=== PATIENT | female | born 1945 | race Caucasian/White ===

== ENCOUNTER 2017-07-10 11:41 | Inpatient (IN) | payer MEDICARE, BC, OTHER ==
[2017-07-10] MEDS ORDERED: Pyridostigmine TAB* 60 MG PO ONE (12:12)
[2017-07-10 12:35] LABS: ABS Basophils 0 10^3/ul (0-0.2); ABS Eosinophils 0 10^3/ul (0-0.6); ABS Lymphocytes 1.4 10^3/ul (1.0-4.8); ABS Monocytes 0.4 10^3/ul (0-0.8); ABS Neutrophils 3.5 10^3/ul (1.5-7.7); ABS Nucleated RBC 0 10^3/ul; Eosinophil % 0.6 % (0-6); Hematocrit 40 % (35-47); Hemoglobin 13.8 g/dl (12.0-16.0); Lymphocyte % 25.9 % (25-47); Mean Corpuscular HGB Conc 34 g/dl (31-36); Mean Corpuscular Hemoglobin 31 pg (27-31); Mean Corpuscular Volume 90 fL (80-97); Mean Platelet Volume 8.3 um3 (7.4-10.4); Nucleated Red Blood Cells % 0; Platelet Count 226 10^3/ul (150-450); Red Blood Count 4.48 10^6/ul (4.0-5.4); Red Cell Distribution Width 13 % (10.5-15); White Blood Count 5.4 10^3/ul (3.5-10.8)
[2017-07-10] MEDS ORDERED: Acetaminophen TAB* 325 MG PO PRN (14:03)
[2017-07-10] MEDS ORDERED: Al Hydrox/Mg Hydrox/Simet LIQ* 30 ML UDC PO PRN (14:03)
--- NOTE | 2017-07-10 17:52 | ED ---
Jeff Deleon Jennifer, scribed for Malick Bynum MD on 07/10/17 at 1216 . Neurological HPI - HPI Summary HPI Summary: The patient is a 71 year old female sent by Dr. Ricketts for myasthenia crisis today. The patient reports she missed her medication because shes been traveling. She complains of intermittent shortness of breath, intermittent palpitations, muscle fatigue, and trouble swallowing. The patient is able to ambulate using a cane. She adds that she recently moved to [place] from [place]. - History of Current Complaint Chief Complaint: EDNeurologicalDeficit Stated Complaint: SENT BY DR RICKETTS/INFUSION Time Seen by Provider: 07/10/17 11:49 Hx Obtained From: Patient Onset/Duration: Gradual Onset, Still Present, Worse Since - 6 weeks Timing: Constant Onset Severity: Moderate Current Severity: Moderate Pain Intensity: 0 Pain Scale Used: 0-10 Numeric Character: Other: - myasthenia, shortness of breath, palpitations, muscle fatigue, trouble swallowing Aggravating: Nothing Alleviating: Nothing Associated Signs and Symptoms: Positive: Shortness of Breath, Palpitations - Allergy/Home Medications Allergies/Adverse Reactions: Allergies Allergy/AdvReac Type Severity Reaction Status Date / Time oxycodone Allergy Hallucinati Verified 07/10/17 12:07 ons peanut Allergy See Comment Verified 07/10/17 12:07 codeine AdvReac Hallucinati Verified 07/10/17 12:07 ons Home Medications: Home Medications Aspirin EC TAB* [Ecotrin EC Low Dose 81 MG*] 81 mg PO DAILY 07/10/17 [History Confirmed 07/10/17] Cholestyramine Resin* [Questran*] 4 gm PO BID 07/10/17 [History Confirmed ] Metoprolol Succinate XL TAB* [Toprol XL TAB*] 50 mg PO BEDTIME 07/10/17 [ History Confirmed 07/10/17] Metoprolol Succinate XL TAB* [Toprol XL TAB*] 100 mg PO QAM 07/10/17 [History Confirmed 07/10/17] Multivitamins/Minerals TAB* [Theragran/minerals TAB*] 1 tab PO DAILY 07/10/17 [ History Confirmed 07/10/17] Pyridostigmine TAB* [Mestinon TAB*] 60 mg PO QID 07/10/17 [History Confirmed 05/25] Simvastatin [Zocor 5 MG-] 5 mg PO DAILY 07/10/17 [History Confirmed 07/10/17] PMH/Surg Hx/FS Hx/Imm Hx Endocrine/Hematology History: Denies: Hx Diabetes Cardiovascular History: Reports: Hx Hypercholesterolemia, Hx Hypertension Neurological History: Reports: Other Neuro Impairments/Disorders - Myasthemia gravis Infectious Disease History: No Infectious Disease History: Denies: Traveled Outside the [place] in Last 30 Days - Family History Known Family History: Negative: Renal Disease - Social History Alcohol Use: None Substance Use Type: Reports: None Smoking Status (MU): Never Smoked Tobacco Review of Systems ENT: Other - trouble swallowing Positive: Palpitations Positive: Shortness Of Breath Positive: Other - muscle fatigue All Other Systems Reviewed And Are Negative: Yes Physical Exam - Summary Physical Exam Summary: Appearance: Well appearing, no pain distress Skin: warm, dry, reflects adequate perfusion Head/face: normal Eyes: Ptosis most notably of left eye, able to lift left lid, EOMI, MICH ENT: normal Neck: supple, non-tender Respiratory: CTA, breath sounds present Cardiovascular: RRR, but episode of irregularity with what sounded like S3, pulses symmetrical Abdomen: non-tender, soft Bowel Sounds: present Musculoskeletal: normal, strength/ROM intact Neuro: normal, sensory motor intact, A&Ox3 Triage Information Reviewed: Yes Vital Signs On Initial Exam: Initial Vitals Temp Pulse Resp BP Pulse Ox 98.6 F 96 16 145/91 99 07/10/17 11:51 07/10/17 11:51 07/10/17 11:51 07/10/17 11:51 07/10/17 11:51 Vital Signs Reviewed: Yes Diagnostics - Vital Signs Vital Signs Temp Pulse Resp BP Pulse Ox 07/10/17 11:51 98.6 F 96 16 145/91 99 - Laboratory Lab Results: Lab Results 07/10/17 07/10/17 07/10/17 Range/Units 12:23 12:23 12:23 WBC 5.4 (3.5-10.8) 10^3/ul RBC 4.48 (4.0-5.4) 10^6/ul Hgb 13.8 (12.0-16.0) g/dl Hct 40 (35-47) % MCV 90 (80-97) fL MCH 31 (27-31) pg MCHC 34 (31-36) g/dl RDW 13 (10.5-15) % Plt Count 226 (150-450) 10^3/ul MPV 8.3 (7.4-10.4) um3 Neut % (Auto) 65.3 (38-83) % Lymph % (Auto) 25.9 (25-47) % [place] % (Auto) 7.9 H (0-7) % Eos % (Auto) 0.6 (0-6) % Baso % (Auto) 0.3 (0-2) % Absolute Neuts (auto) 3.5 (1.5-7.7) 10^3/ul Absolute Lymphs (auto) 1.4 (1.0-4.8) 10^3/ul Absolute Monos (auto) 0.4 (0-0.8) 10^3/ul Absolute Eos (auto) 0 (0-0.6) 10^3/ul Absolute Basos (auto) 0 (0-0.2) 10^3/ul Absolute Nucleated RBC 0 10^3/ul Nucleated RBC % 0 Sodium 138 L (139-145) mmol/L Potassium 3.7 (3.5-5.0) mmol/L Chloride 107 (101-111) mmol/L Carbon Dioxide 27 (22-32) mmol/L Anion Gap 4 (2-11) mmol/L BUN 10 (6-24) mg/dL Creatinine 0.64 (0.51-0.95) mg/dL Est GFR ( Amer) 117.0 (>60) Est GFR (Non-Af Amer) 91.0 (>60) BUN/Creatinine Ratio 15.6 (8-20) Glucose 102 H (70-100) mg/dL Calcium 10.1 (8.6-10.3) mg/dL Ionized Calcium 4.79 (4.65-5.28) mg/dL Phosphorus 3.1 (2.5-5.0) mg/dL Magnesium 1.9 (1.9-2.7) mg/dL Total Bilirubin 0.50 (0.2-1.0) mg/dL AST 29 (13-39) U/L ALT 32 (7-52) U/L Alkaline Phosphatase 69 (34-104) U/L Total Protein 7.8 (6.4-8.9) g/dL Albumin 3.9 (3.2-5.2) g/dL Globulin 3.9 (2-4) g/dL Albumin/Globulin Ratio 1.0 (1-3) Result Diagrams: 07/10/17 12:23 07/10/17 12:23 Lab Statement: Any lab studies that have been ordered have been reviewed, and results considered in the medical decision making process. - EKG 12:18 Cardiac Rate: NL EKG Rhythm: Sinus Rhythm - 93 BPM Ectopy: PVCs - Frequent EKG Interpretation: Normal axis, intervals, ST. Re-Evaluation - Re-Evaluation First Eval Re-Evaluation Time: 12:35 Change: Unchanged Comment: Forced vital capacity 1.5L. NIF of -25. Course/Dx - Course Course Of Treatment: Pt with ptosis of L eye that improved with ice pack test in office. No new meds. Came from neurologist's office. Will require admission for IVIG, etc. FVC is impaired. NIF -25. - Differential Dx Differential Diagnoses Neuro: Positive: Other - myasthenia crisis, med reaction. - Diagnoses Provider Diagnoses: Myasthenia gravis in crisis Discharge - Sign-Out/Discharge Documenting (check all that apply): Discharge/Admit/Transfer - Discharge Plan Condition: Good Disposition: ADMITTED TO [facility] - Billing Disposition and Condition Condition: GOOD Disposition: [facility] [place] The documentation as recorded by the Jeff gutierrez Jennifer accurately reflects the service I personally performed and the decisions made by me, Malick Bynum MD.
[2017-07-10] MEDS: Pyridostigmine TAB* 60 MG PO SCH ×2 (17:55→20:38)
[2017-07-10] MEDS: Cholestyramine Resin* 4 GM POWDER PO SCH ×2 (17:56→20:40)
[2017-07-10] MEDS: IMMUNE GLOBULN IV SCH (17:58)
--- NOTE | 2017-07-10 18:37 | CONS ---
CONSULTATION REPORT: DATE OF CONSULT: 07/10/17 REASON FOR CONSULT: Neurology was consulted by Dr. Medina to evaluate Ms. Figueroa for myasthenia exacerbation. The history was obtained from the patient. CHIEF COMPLAINT: Double vision and generalized weakness. HISTORY OF PRESENT ILLNESS: Ms. Maisha Figueroa is a pleasant 71-year-old right - handed female who was diagnosed with myasthenia gravis about 1-1/2 years ago. The diagnosis was made after she saw an gerontology aide for evaluation of intermitting double vision. Testing for acetylcholine receptor antibody was done and found positive. I do not have these records available at this time. The patient was referred to the hospital by Dr. Charli Ricketts for suspected myasthenia gravis exacerbation. Ms. Figueroa has been complaining of worsening double vision, slurred speech, and nocturnal shortness of breath over the last few days. The double vision is happening more than before and is described as diurnal horizontal diplopia that again occurs at nighttime. She is also experiencing dysarthria especially when she excessively communicates to her daughter. She also has noticed a left facial droop especially when chewing for longer than a few minutes. She has not had any choking spell. She is having trouble lifting her neck especially when doing any activity that involves neck flexion. She has tongue weakness. She denied any lateralized weakness. She denied any headaches. She denied any paresthesias. She has had IVIG in the past for similar symptoms and she has responded fairly well. She has not had any falls. She stopped driving due to the double vision. She is on Mestinon where she really takes only half of the 60 mg tablet 4 times a day. Mestinon has occasionally helped. PAST MEDICAL HISTORY: History of palpitation, arthritis, and cholesterol. Important to add that the patient is being treated with metoprolol for palpitation. PAST SURGICAL HISTORY: Cholecystectomy and hip replacement. MEDICATIONS: 1. Mestinon. 2. Toprol. 3. Questran. ALLERGIES: CODEINE and PEANUTS. FAMILY HISTORY: Father of old age. Mother had hypertension. Her brother had bypass surgery. SOCIAL HISTORY: She denied tobacco or alcohol use. She worked at [employer]. She is currently unemployed. REVIEW OF SYSTEMS: A 10-point review of systems was obtained, reviewed and otherwise negative except for what was mentioned in the HPI. PHYSICAL EXAMINATION: Vitals: Temperature of 98.6, pulse of 96, respirations 16, oxygen 99%, blood pressure of 145/91. General: Well nourished, well developed. Alert, cooperative, no apparent distress, appears stated age. Normocephalic without any obvious abnormality. Conjunctivae and cornea are clear. Neck: Supple, symmetrical. No carotid bruit. Lungs: Clear to auscultation bilaterally, nonlabored breathing. Cardiovascular: Regular rate and rhythm. Normal S1, S2. Radial pulses are palpable. Extremities: Normal range of motion with no cyanosis. Skin: No skin lesions or lacerations. Psych : Affect is broad and normal mood. Easy to establish rapport. Neurological Examination: Mental Status: Awake and alert, oriented to person, place, time, and general circumstances. She does have flaccid dysarthria especially after discussing the case with her for 20 minutes. She developed dysarthria. Otherwise, she was able to name, repeat, and comprehend fairly well. Cranial Nerves: Fatigable ptosis bilaterally, left worse than right. Curtain sign positive on the left. She does have a normal pupillary reaction, which are mid range and reactive to light with normal consensual response. Extraocular muscles are intact. Sensation is intact in the forehead, cheeks, and jaw region. There is a facial asymmetry, mostly a left facial droop. The patient has noticed this in the past as well. She is able to hear throughout the history process. Symmetrical palatal elevation with Mallampati score of IV. Shoulder shrug slightly weaker, left greater than right. Tongue exhibited weakness on both sides. Motor Examination: No abnormal movements and no pronator drift. Normal bulk and tone throughout. No fasciculation. Neck extension 4, neck flexion 4. Shoulder range of motion is full. She did become fatigued after shoulder elevation and shoulder abduction for more than 1 minute. Shoulder strength after exercise is 4/4. Otherwise, 5/5 throughout the upper extremity. Hip flexor is 4/4 after 1 minute of exercise. Otherwise, 5/5 throughout the lower extremities. Reflexes trace in the right and left brachioradialis, biceps, triceps, patellae , and ankles. She has flexor plantar response bilaterally. Sensation is intact to light touch throughout. Normal vibration and proprioception at the great toes. Coordination: Normal [id number] and rapid alternating movements. Gait and station: Mild wide-based gait, but no ataxia. LABS, IMAGING, AND OTHER DIAGNOSTIC TESTING: The patient did have MRIs of the brain when she used to see her old neurologist in [place]. Otherwise, no recent intracranial imaging. She has never had imaging of the chest to check for a thymoma. No images are available here during this hospitalization. Laboratory values: WBC of 5.4. Sodium of 138, glucose of 102. ASSESSMENT: This is a pleasant 71-year-old female with: 1. History of myasthenia gravis, presents with worsening symptoms of bulbar and motor weakness suggestive of myasthenia gravis crisis. The patient has intermittent shortness of breath mostly at night when lying flat, but it is mild at this point. We will admit for treatment of myasthenia gravis exacerbation. I don't think she is critical enough to require ICU monitoring but that may change quickly. We need to make sure she is monitored closely. 2. Palpitation - on metoprolol. Patients with myasthenia gravis should not be on a beta lyndsey. This has been held. RECOMMENDATIONS: Admit for treatment of myasthenia gravis exacerbation. I have started the patient on IVIG 400 mg/kg daily for the next 5 days. I also started her on prednisone 60 mg daily starting tomorrow after the second dose of IVIG. Please closely monitor the patient respiration as prednisone may exacerbate her neurological symptoms. I ordered pulmonary function tests and also negative inspiratory force pressure to be done every 6 hours for the next at least 24-48 hours. Please do not prescribe any fluoroquinolones, beta blockers, magnesium, macrolides, aminoglycosides, or calcium channel blockers that may exacerbate her myasthenia gravis. I started her on omeprazole and vitamin D supplementation. She will need CT of the chest or MRI of the chest to evaluate for thymoma since this has not been done. This can be done as an outpatient as she is currently receiving IVIG and IVIG may cause acute kidney injury. We do not want to exacerbate any kidney damage with iodine contrast. Continue neuro checks every 4 hours. Continue supportive care, aspiration precaution, and consulted Speech Pathology for evaluation. If she does not pass her speech evaluation, I would like her to undergo a modified barium swallow evaluation. I do not think that is going to be the case as the patient appears to swallow without any difficulty when tested at bedside. I have discussed the case with Dr. Ricketts as well as Dr. Medina. TIME SPENT: I spent a total of 70 minutes and greater than 50% was spent directly reviewing the medical chart, obtaining history, examining the patient, education, counseling, and discussing the treatment plan and prognosis. I also spent a period of 10 minutes discussing the case with other providers. [id number]/[facility] #: [id number] REBEKAH
[2017-07-10] MEDS: Heparin VIAL(*) 5000 UNITS/ML VIAL (FIVE THOUSAND) SUBCUT SCH (20:41)
--- NOTE | 2017-07-10 21:22 | HP ---
CC: Dr. Ricketts * HISTORY AND PHYSICAL: DATE OF ADMISSION: 07/10/17 PROVIDER: Olivia Chan NP PRIMARY CARE PROVIDER: None. ATTENDING PHYSICIAN: Dr. Jamie Medina * (dictated by Olivia Chan NP). CHIEF COMPLAINT: Double vision and neck weakness, slurred speech. HISTORY OF PRESENT ILLNESS: Ms. Figueroa is a 71-year-old female with a past medical history of palpitations, osteoarthritis, hyperlipidemia, hypertension, irritable bowel, and myasthenia gravis, who was seen by Dr. Ricketts and was thought to be in myasthenia gravis crisis. The patient reports that for approximately the last week she has had increased complaints of double vision, slurred speech left side of her mouth, difficulty swallowing, mild neck weakness and left eye drooping, increased fatigue. The patient states that her last flare of myasthenia gravis was in May where she did receive IVIG from to 05/31/17. She reports that she just moved to the area and she saw Dr. Ricketts for Neurology, who sent her here for further evaluation and treatment. PAST MEDICAL HISTORY: Significant for: 1. Palpitations. 2. Osteoarthritis. 3. Hyperlipidemia. 4. Hypertension. 5. Pancreatitis. The patient had 1 episode after having gallbladder removed. 6. Irritable bowel syndrome. 7. Myasthenia gravis. PAST SURGICAL HISTORY: 1. Cholecystectomy. 2. Bilateral hip replacements. HOME MEDICATIONS: Include, 1. Simvastatin 5 mg p.o. daily. 2. Multivitamin 1 tablet p.o. daily. 3. Aspirin 81 mg p.o. daily. 4. Metoprolol succinate 50 mg p.o. at bedtime. 5. Metoprolol succinate 100 mg p.o. q.a.m. 6. Mestinon 60 mg p.o. 4 times a day. 7. Questran 4 mg p.o. b.i.d. ALLERGIES TO MEDICATIONS: She is allergic to OXYCODONE, PEANUTS, and CODEINE. FAMILY HISTORY: Father with a history of angina. Brother with a history of bypass. Mother with a history of diabetes. No reported history of cancer within the family. SOCIAL HISTORY: She denies any tobacco or illicit drug use. She does report rare alcohol consumption. She is retired. Surrogate decision maker in the event she is unable to make her own decisions is her daughter, Milagros and her phone number is . REVIEW OF SYSTEMS: There is no documented fever. There is no significant weight change. She does report double vision. The patient does report she has left eye drooping. She denies any ear discharge. Denies any rhinorrhea or sore throat. She denies any chest pain or edema. Denies any cough or shortness of breath. Denies any nausea or vomiting. She does report diarrhea that is chronic for her. Denies any abdominal pain. No hematuria or dysuria. Denies any focal weakness or sensory loss. She does report mild dysphagia. She denies any arthralgias or myalgias. She does report a rash under bilateral breasts. She denies any anxiety but does report that she has been a little depressed lately. Review of 14 systems was completed and all others were negative. PHYSICAL EXAM: GENERAL: At this time, Ms. Figueroa is a 71-year-old female; she appears comfortable sitting on the stretcher in the emergency room. She does not appear to be in any acute distress. VITAL SIGNS: As follows, temperature was 98.6, heart rate was 91, respirations were 14, blood pressure 131/83, O2 saturation was 96%. HEENT: Head is atraumatic and normocephalic. Eyes: She has left eye drooping. Pupils are equal and reactive to light. Oral mucosa appears to be moist. NECK: Supple with mild weakness. LUNGS: Clear to auscultation bilaterally. No wheezes, rales, or rhonchi. CARDIAC: S1, S2. Regular rate and rhythm. There is no murmurs, rubs, or gallops. ABDOMEN: Soft and nontender. Bowel sounds are present x4. EXTREMITIES: Pulses are +2 throughout. She is able to move all 4 extremities with 5/5 strength. NEUROLOGIC: She is awake, alert, and oriented x3. She does have a left facial droop. Her smile is asymmetrical. Her tongue does deviate to the left. Her left eye is drooping. Her speech is clear. Hand performing arts road manager are equal. SKIN: She does have a red rash in her bilateral breasts. DIAGNOSTIC STUDIES AND LABORATORY DATA: WBCs were 5.4, RBCs 4.48, hemoglobin 13.8, hematocrit was 40, platelet count was 226. Sodium 138, potassium 3.7, chloride 107, carbon-dioxide was 7, anion gap was 4, BUN was 10, creatinine 0.64 , glucose was 102, calcium was 10.1, phosphorus was 3.1, magnesium was 1.9. TSH 0.95. Vitamin B12 was 312. She had an electrocardiogram done in the emergency room, which showed sinus rhythm at a rate of 93 with PVCs. ASSESSMENT AND PLAN: Ms. Figueroa is a 71-year-old female who presented to the emergency room from Dr. Ricketts's office for evaluation of myasthenia gravis crisis. She has had crisis in the past with last treatment for myasthenia gravis crisis on 05/26/17, where she did receive IVIG. She will be admitted inpatient for: 1. Myasthenia gravis crisis. I did consult Dr. Anaya from Neurology for recommendations. She will be placed on IVIG. We will do neuro checks q.4 hours. We will continue her on her Mestinon at 60 mg 4 times a day. 2. Hypertension. We will monitor her blood pressure at this time. Dr. Anaya would like metoprolol held at this time. 3. Hyperlipidemia. We will continue her on her Zocor. 4. Irritable bowel syndrome. We will continue her on Questran 4 mg b.i.d. 5. FEN. She will be placed on a heart-healthy diet. 6. Code status. She is a full code. 7. DVT prophylaxis. We will place her on heparin subcutaneous. 8. Disposition. She will be placed inpatient on the telemetry floor. TIME SPENT: Time spent on this admission was 60 minutes, greater than half the time was spent [id number] with the patient obtaining my history and physical; the other half the time was spent going over the plan of care with the patient and implementing my plan of care. I have discussed this with my attending, Dr. Jamie Medina, he is in agreement with my plan. OLIVIA CHAN, VISUAL LEAD [id number]/[facility] #: [id number] REBEKAH
[2017-07-11] MEDS: Heparin VIAL(*) 5000 UNITS/ML VIAL (FIVE THOUSAND) SUBCUT SCH ×3 (05:58→21:40)
[2017-07-11 07:00] LABS: ABS Basophils 0 10^3/ul (0-0.2); ABS Eosinophils 0.1 10^3/ul (0-0.6); ABS Lymphocytes 1.4 10^3/ul (1.0-4.8); ABS Monocytes 0.4 10^3/ul (0-0.8); ABS Nucleated RBC 0 10^3/ul; Eosinophil % 1.6 % (0-6); Hematocrit 37 % (35-47); Hemoglobin 12.9 g/dl (12.0-16.0); Lymphocyte % 36.4 % (25-47); Mean Corpuscular HGB Conc 35 g/dl (31-36); Mean Corpuscular Hemoglobin 31 pg (27-31); Mean Corpuscular Volume 89 fL (80-97); Mean Platelet Volume 8.5 um3 (7.4-10.4); Nucleated Red Blood Cells % 0.1; Platelet Count 200 10^3/ul (150-450); Red Blood Count 4.16 10^6/ul (4.0-5.4); Red Cell Distribution Width 13 % (10.5-15)
[2017-07-11 07:18] LABS: EGFR Non-African American 87.8 (>60)
[2017-07-11] MEDS: Cholestyramine Resin* 4 GM POWDER PO SCH ×2 (07:59→21:38)
[2017-07-11] MEDS: Pyridostigmine TAB* 60 MG PO SCH ×4 (07:59→21:36)
[2017-07-11] MEDS: Multivitamins/Minerals TAB PO SCH (07:59)
[2017-07-11] MEDS: Cholecalciferol TAB* 1000 UNITS PO SCH (07:59)
[2017-07-11] MEDS: Aspirin EC TAB* 81 MG TAB.EC PO SCH (07:59)
[2017-07-11] MEDS: Omeprazole CAP(NF) 10 MG CAP PO SCH (07:59)
[2017-07-11] MEDS: CMCS Simvastatin TAB(NF) 10 MG TAB PO SCH (07:59)
[2017-07-11] MEDS ORDERED: predniSONE TAB* 20 MG PO SCH (09:00)
--- NOTE | 2017-07-11 12:24 | PN ---
Subjective Date of Service: 07/11/17 Interval History: C/o some difficulty swallowing today. Did have an episode where she choked on one of her morning medications. Denies any chest pain or shortness of breath at this time. Denies abd pain n/v/d. Family History: Unchanged from Admission Social History: Unchanged from Admission Past Medical History: Unchanged from Admission Objective Active Medications: Acetaminophen (Tylenol Tab*) 650 mg PO Q4H PRN PRN Reason: FEVER/PAIN Aspirin (Aspirin Ec Tab*) 81 mg PO DAILY [facility] Last Admin: 07/11/17 07:59 Dose: 81 mg Cholecalciferol (Vitamin D Tab*) 2,000 units PO DAILY [facility] Last Admin: 07/11/17 07:59 Dose: 2,000 units Cholestyramine Resin (Questran*) 4 gm PO BID [facility] Last Admin: 07/11/17 07:59 Dose: 4 gm Heparin Sodium (Porcine) (Heparin Vial(*)) 5,000 units SUBCUT Q8HR [facility] Last Admin: 07/11/17 05:58 Dose: 5,000 units Immune Globulin 30 gm/ IV (Solution) 600 mls @ 0 mls/hr IV 1200 [facility]; Per Protocol PRN Reason: Protocol Stop: 07/14/17 12:01 Last Admin: 07/10/17 17:58 Dose: 46 mls/hr Multivitamins/Minerals (Theragran/Minerals Tab*) 1 tab PO DAILY [facility] Last Admin: 07/11/17 07:59 Dose: 1 tab Omeprazole (Prilosec Cap(Nf)) 10 mg PO DAILY [facility] Last Admin: 07/11/17 07:59 Dose: Not Given Prednisone (Deltasone Tab*) 20 mg PO DAILY [facility] Pyridostigmine [place] (Mestinon Tab*) 60 mg PO 0530,1030,1530,2030 [facility] Simvastatin (Zocor(Nf)) 5 mg PO DAILY [facility] Last Admin: 07/11/17 07:59 Dose: 5 mg Vital Signs - 8 hr 07/11/17 04:28 Temperature 98.7 F Pulse Rate 95 Respiratory 18 Rate Blood Pressure 122/67 (mmHg) O2 Sat by Pulse 98 Oximetry Oxygen Devices in Use Now: None Appearance: pleasent, awake and alert, no acute distress, left facial droop noted. Eyes: No Scleral Icterus Ears/Nose/Mouth/Throat: Clear Oropharnyx, Mucous Membranes Moist Neck: NL Appearance and Movements; NL JVP, Trachea Midline Respiratory: Symmetrical Chest Expansion and Respiratory Effort, Clear to Auscultation Cardiovascular: NL Sounds; No Murmurs; No JVD, No Edema Abdominal: NL Sounds; No Tenderness; No Distention Extremities: No Edema, No Clubbing, Cyanosis Skin: No Rash or Ulcers, No Nodules or Sclerosis Neurological: Alert and Oriented x 3, NL Sensation, NL Gait, NL Muscle Strength and Tone, - - left facial droop and left eye ptosis, tongue deviates to the left , speech is slightly slurred Nutrition: Taking PO's Result Diagrams: 07/11/17 06:40 07/11/17 06:39 Additional Lab and Data: Lab Results 07/10/17 07/10/17 07/10/17 Range/Units 12:23 12:23 12:23 WBC 5.4 (3.5-10.8) 10^3/ul RBC 4.48 (4.0-5.4) 10^6/ul Hgb 13.8 (12.0-16.0) g/dl Hct 40 (35-47) % MCV 90 (80-97) fL MCH 31 (27-31) pg MCHC 34 (31-36) g/dl RDW 13 (10.5-15) % Plt Count 226 (150-450) 10^3/ul MPV 8.3 (7.4-10.4) um3 Neut % (Auto) 65.3 (38-83) % Lymph % (Auto) 25.9 (25-47) % [place] % (Auto) 7.9 H (0-7) % Eos % (Auto) 0.6 (0-6) % Baso % (Auto) 0.3 (0-2) % Absolute Neuts (auto) 3.5 (1.5-7.7) 10^3/ul Absolute Lymphs (auto) 1.4 (1.0-4.8) 10^3/ul Absolute Monos (auto) 0.4 (0-0.8) 10^3/ul Absolute Eos (auto) 0 (0-0.6) 10^3/ul Absolute Basos (auto) 0 (0-0.2) 10^3/ul Absolute Nucleated RBC 0 10^3/ul Nucleated RBC % 0 Sodium 138 L (139-145) mmol/L Potassium 3.7 (3.5-5.0) mmol/L Chloride 107 (101-111) mmol/L Carbon Dioxide 27 (22-32) mmol/L Anion Gap 4 (2-11) mmol/L BUN 10 (6-24) mg/dL Creatinine 0.64 (0.51-0.95) mg/dL Est GFR ( Amer) 117.0 (>60) Est GFR (Non-Af Amer) 91.0 (>60) BUN/Creatinine Ratio 15.6 (8-20) Glucose 102 H (70-100) mg/dL Calcium 10.1 (8.6-10.3) mg/dL Ionized Calcium 4.79 (4.65-5.28) mg/dL Phosphorus 3.1 (2.5-5.0) mg/dL Magnesium 1.9 (1.9-2.7) mg/dL Total Bilirubin 0.50 (0.2-1.0) mg/dL AST 29 (13-39) U/L ALT 32 (7-52) U/L Alkaline Phosphatase 69 (34-104) U/L Total Protein 7.8 (6.4-8.9) g/dL Albumin 3.9 (3.2-5.2) g/dL Globulin 3.9 (2-4) g/dL Albumin/Globulin Ratio 1.0 (1-3) Assess/Plan/Problems-Billing Assessment: Ms. Figueroa is a 71 y.o female with a hx of HTN, HLD, palpitations, IBS and osteoarthritis who presented to the Emergency room after being seen by Dr. King whitfield on 07/09/2017 for furthur management of myasthenia gravis. - Patient Problems (1) Myasthenia exacerbation Current Visit: Yes Status: Acute Code(s): G70.01 - MYASTHENIA GRAVIS WITH ( ACUTE) EXACERBATION SNOMED Code(s): 13471069 Comment: - continues to have some slurred speech , episode of choking on medications this AM- recommend crushing medications for now - speech threapy - Neurology consulted- suggested barium swallow for friday - IVIG as ordered - steriods - continue mestinon QID (2) HLD (hyperlipidemia) Current Visit: Yes Status: Acute Code(s): E78.5 - HYPERLIPIDEMIA, UNSPECIFIED SNOMED Code(s): 11617501 Comment: stable - continue zocor (3) HTN (hypertension) Current Visit: Yes Status: Acute Code(s): I10 - ESSENTIAL (PRIMARY) HYPERTENSION SNOMED Code(s): 80666463 Comment: -stable -Metoprolol was help d/t this medications may excerbate myasthenia symptoms -will monitor BP if BP becomes elevated will start medication as needed (4) Palpitation Current Visit: Yes Status: Acute Code(s): R00.2 - PALPITATIONS SNOMED Code (s): 29847375 Comment: - has a history of Non-sustained VT and PVC's - metprolol was being held d/t myasthenia excerbation but patient has developed frequent PVC's and bigeminy- spoke to Dr. Blayne rubalcava to restart beta blockers (5) DVT prophylaxis Current Visit: Yes Status: Acute Code(s): XLS9555 - SNOMED Code(s): 396684003 Comment: Heparin SubQ (6) Full code status Current Visit: Yes Status: Acute Code(s): Z78.9 - OTHER SPECIFIED HEALTH STATUS SNOMED Code(s): 588467859 Status and Disposition: inpatient for IVIG
[2017-07-11] MEDS: Metoprolol Succinate XL TAB* 100 MG PO SCH (13:29)
[2017-07-11] MEDS: IMMUNE GLOBULN IV SCH (13:29)
[2017-07-11] MEDS: Metoprolol Succinate XL TAB* 50 MG PO SCH (21:36)
[2017-07-12] MEDS: Heparin VIAL(*) 5000 UNITS/ML VIAL (FIVE THOUSAND) SUBCUT SCH ×3 (05:27→21:21)
[2017-07-12] MEDS: Pyridostigmine TAB* 60 MG PO SCH ×4 (05:27→21:23)
--- NOTE | 2017-07-12 06:42 | PN ---
NEUROLOGY PROGRESS NOTE: DATE OF SERVICE: 07/11/17 Neurology is following for the evaluation and treatment of myasthenia gravis exacerbation. CHIEF COMPLAINT: Worsening of swallowing function. SUBJECTIVE: The patient noticed that her swallowing has worsened over the last few hours after takin g prednisone. She feels more fatigued. She does not feel too well. She has double vision. She thi nks her ptosis has worsened on the left side. Otherwise, she was able to tolerate IVIG yesterday and is waiting to have the second infusion today. She denied any significant shortness of breath. REVIEW OF SYSTEMS: As per HPI. MEDICATIONS: 1. Acetaminophen. 2. Aspirin. 3. Cholestyramine. 4. IVIG. 5. Prednisone. 6. Mestinon. 7. Simvastatin. PHYSICAL EXAMINATION: Vital Signs: Heart rate 88, blood pressure 110/68, oxygen saturation 97%, res piratory rate of 16. The patient had forced vital capacity of 1.4 L. Negative inspiratory pressure of -35. Well-nourished, well-developed female, in no acute distress. Normocephalic without obvious abnormalities. Conjunctivae and cornea are clear. Neck is supple with no carotid bruits. Clear to a uscultation bilaterally. Cardiovascular: She is tachycardic. She has been tachycardic over the las t few hours. Extremities: Normal range of motion. Neurological Examination: Mental Status: Awake and alert, oriented to person, place, time, and general circumstances. She does have mild dysarthria . Cranial Nerves: Left worse than right ptosis. Pupils are equal, round and reactive to light. Le ft facial droop. Mild tongue weakness on bilateral side. Motor: Mild 4/5 weakness on shoulder abdu ction, but otherwise 5/5 throughout in the upper extremity. She has 4/5 hip flexion weakness bilater ally. Reflexes trace throughout. Sensation intact to light touch throughout. Coordination: Normal [id number]. Gait and station, narrow based. No ataxia. ASSESSMENT: 1. Myasthenia gravis exacerbation. 2. Tachycardia. 3. Dysphagia. RECOMMENDATIONS: The patient's NIF and forced vital capacity are within normal limits. Please manjula nue to do both respiratory measures at least 12 hours for now. I agree with reducing the dose of pred nisone to 20 mg daily. She clearly has had worsening of symptoms with 60 mg dose. We will slowly in crease the dose as outpatient. Continue IVIG. Today is 2/5 of treatment with IVIG. If her NIF fall below 25, please contact the neurologist immediately. I agree with restarting the metoprolol for the tachycardia. The patient does have history of bigemin i and supraventricular tachycardia and she is extremely tachycardic at this point. I do not think th e metoprolol is worsening or causing any exacerbation of her myasthenia. I discussed the case in det ail with Olivia, the patient's provider. She will order a modified barium swallow, which can be don e by Friday. Continue neuro checks every 4 hours. We will continue to follow. [id number]/[facility] #: [id number]
[2017-07-12] MEDS: CMCS Simvastatin TAB(NF) 10 MG TAB PO SCH (08:16)
[2017-07-12] MEDS: Cholestyramine Resin* 4 GM POWDER PO SCH ×2 (08:16→21:21)
[2017-07-12] MEDS: Cholecalciferol TAB* 1000 UNITS PO SCH (08:17)
[2017-07-12] MEDS: Aspirin EC TAB* 81 MG TAB.EC PO SCH (08:17)
[2017-07-12] MEDS: predniSONE TAB* 20 MG PO SCH (08:17)
[2017-07-12] MEDS: Metoprolol Succinate XL TAB* 100 MG PO SCH (08:17)
[2017-07-12] MEDS: Multivitamins/Minerals TAB PO SCH (08:17)
[2017-07-12] MEDS: Omeprazole CAP(NF) 10 MG CAP PO SCH (08:26)
--- NOTE | 2017-07-12 09:03 | PN ---
Subjective Date of Service: 07/12/17 Interval History: Patient was seen and examined at bedside. Reports doing better today. Speech still slurred, but no more episodes of chocking or swallowing difficulties. Denies chest pain, palpitations, dyspnea or SOB. Ambulatory in her room, using the bathroom. She has no complaints today. Family History: Unchanged from Admission Social History: Unchanged from Admission Past Medical History: Unchanged from Admission Objective Active Medications: Acetaminophen (Tylenol Tab*) 650 mg PO Q4H PRN PRN Reason: FEVER/PAIN Aspirin (Aspirin Ec Tab*) 81 mg PO DAILY [facility] Last Admin: 07/12/17 08:17 Dose: 81 mg Cholecalciferol (Vitamin D Tab*) 2,000 units PO DAILY [facility] Last Admin: 07/12/17 08:17 Dose: 2,000 units Cholestyramine Resin (Questran*) 4 gm PO BID [facility] Last Admin: 07/12/17 08:16 Dose: 4 gm Heparin Sodium (Porcine) (Heparin Vial(*)) 5,000 units SUBCUT Q8HR [facility] Last Admin: 07/12/17 05:27 Dose: 5,000 units Immune Globulin 30 gm/ IV (Solution) 600 mls @ 0 mls/hr IV 1200 [facility]; Per Protocol PRN Reason: Protocol Stop: 07/14/17 12:01 Last Admin: 07/11/17 13:29 Dose: 46 mls/hr Metoprolol Succinate (Toprol Xl Tab*) 100 mg PO QAM [facility] Last Admin: 07/12/17 08:17 Dose: 100 mg Metoprolol Succinate (Toprol Xl Tab*) 50 mg PO BEDTIME [facility] Last Admin: 07/11/17 21:36 Dose: 50 mg Multivitamins/Minerals (Theragran/Minerals Tab*) 1 tab PO DAILY [facility] Last Admin: 07/12/17 08:17 Dose: 1 tab Omeprazole (Prilosec Cap(Nf)) 10 mg PO DAILY [facility] Last Admin: 07/12/17 08:26 Dose: Not Given Prednisone (Deltasone Tab*) 20 mg PO DAILY [facility] Last Admin: 07/12/17 08:17 Dose: 20 mg Pyridostigmine [place] (Mestinon Tab*) 60 mg PO 0530,1030,1530,2030 [facility] Last Admin: 07/12/17 05:27 Dose: 60 mg Simvastatin (Zocor(Nf)) 5 mg PO DAILY [facility] Last Admin: 07/12/17 08:16 Dose: 5 mg Vital Signs - 8 hr 07/12/17 07/12/17 03:29 08:05 Temperature 98.3 F 97.9 F Pulse Rate 114 Respiratory 18 Rate Blood Pressure 141/75 (mmHg) O2 Sat by Pulse 99 Oximetry Oxygen Devices in Use Now: None Appearance: Awake, alert, appears comfortable sitting on her bed, just finished eating breakfast. Eyes: No Scleral Icterus, PERRLA Ears/Nose/Mouth/Throat: Clear Oropharnyx, Mucous Membranes Moist Neck: Trachea Midline Respiratory: Symmetrical Chest Expansion and Respiratory Effort, Clear to Auscultation Cardiovascular: NL Sounds; No Murmurs; No JVD, RRR Abdominal: NL Sounds; No Tenderness; No Distention, No Hepatosplenomegaly Lymphatic: No Cervical Adenopathy Extremities: No Edema Neurological: Alert and Oriented x 3, NL Sensation Nutrition: Taking PO's Result Diagrams: 07/11/17 06:40 07/11/17 06:39 Additional Lab and Data: Lab Results 07/10/17 07/10/17 07/10/17 Range/Units 12:23 12:23 12:23 WBC 5.4 (3.5-10.8) 10^3/ul RBC 4.48 (4.0-5.4) 10^6/ul Hgb 13.8 (12.0-16.0) g/dl Hct 40 (35-47) % MCV 90 (80-97) fL MCH 31 (27-31) pg MCHC 34 (31-36) g/dl RDW 13 (10.5-15) % Plt Count 226 (150-450) 10^3/ul MPV 8.3 (7.4-10.4) um3 Neut % (Auto) 65.3 (38-83) % Lymph % (Auto) 25.9 (25-47) % [place] % (Auto) 7.9 H (0-7) % Eos % (Auto) 0.6 (0-6) % Baso % (Auto) 0.3 (0-2) % Absolute Neuts (auto) 3.5 (1.5-7.7) 10^3/ul Absolute Lymphs (auto) 1.4 (1.0-4.8) 10^3/ul Absolute Monos (auto) 0.4 (0-0.8) 10^3/ul Absolute Eos (auto) 0 (0-0.6) 10^3/ul Absolute Basos (auto) 0 (0-0.2) 10^3/ul Absolute Nucleated RBC 0 10^3/ul Nucleated RBC % 0 Sodium 138 L (139-145) mmol/L Potassium 3.7 (3.5-5.0) mmol/L Chloride 107 (101-111) mmol/L Carbon Dioxide 27 (22-32) mmol/L Anion Gap 4 (2-11) mmol/L BUN 10 (6-24) mg/dL Creatinine 0.64 (0.51-0.95) mg/dL Est GFR ( Amer) 117.0 (>60) Est GFR (Non-Af Amer) 91.0 (>60) BUN/Creatinine Ratio 15.6 (8-20) Glucose 102 H (70-100) mg/dL Calcium 10.1 (8.6-10.3) mg/dL Ionized Calcium 4.79 (4.65-5.28) mg/dL Phosphorus 3.1 (2.5-5.0) mg/dL Magnesium 1.9 (1.9-2.7) mg/dL Total Bilirubin 0.50 (0.2-1.0) mg/dL AST 29 (13-39) U/L ALT 32 (7-52) U/L Alkaline Phosphatase 69 (34-104) U/L Total Protein 7.8 (6.4-8.9) g/dL Albumin 3.9 (3.2-5.2) g/dL Globulin 3.9 (2-4) g/dL Albumin/Globulin Ratio 1.0 (1-3) Assess/Plan/Problems-Billing Assessment: Ms. Figueroa is a 71 y.o female with a hx of HTN, HLD, palpitations, IBS and osteoarthritis who presented to the Emergency room after being seen by Dr. King whitfield on 07/09/2017 for furthur management of myasthenia gravis. - Patient Problems (1) Myasthenia exacerbation Current Visit: Yes Status: Acute Comment: - continues to have some slurred speech , no more episodes of choking on medications since yesterday, will continue crushing medications for now - speech threapy - Neurology consulted- suggested barium swallow for friday - IVIG as ordered - steriods - continue mestinon QID (2) HLD (hyperlipidemia) Current Visit: Yes Status: Acute Comment: stable - continue zocor (3) HTN (hypertension) Current Visit: Yes Status: Acute Comment: -stable (4) Palpitation Current Visit: Yes Status: Acute Code(s): R00.2 - PALPITATIONS SNOMED Code (s): 80287313 Comment: - has a history of Non-sustained VT and PVC's - metprolol was resumed (5) DVT prophylaxis Current Visit: Yes Status: Acute Comment: Heparin SubQ (6) Full code status Current Visit: Yes Status: Acute Status and Disposition: Inpatient for IVIG. Anticipate discharge once medically stable.
[2017-07-12] MEDS: IMMUNE GLOBULN IV SCH (13:08)
--- NOTE | 2017-07-12 18:39 | PN ---
NEUROLOGY FOLLOWUP: DATE OF FOLLOWUP: 07/12/17 LOCATION: She is an inpatient in room 452. HOSPITALIST: AGUSTIN Prajapati CHIEF COMPLAINT: Myasthenia gravis. INTERVAL HISTORY: Since yesterday, Ms. Figueroa feels better. She felt worse yesterday being general ly more weak with more swallowing problems in particular. She had difficulty swallowing some of her p ills. Today, she feels she is doing considerably better. She has not had any shortness of breath. She feels steady on her feet. She still gets double vision, but she has moments where things will be fused. She is able to keep her left eye open better. MEDICATIONS: Reviewed and she is on: 1. Prednisone 20 mg p.o. daily. 2. Metoprolol 50 mg p.o. q.h.s. and 100 mg p.o. q.a.m. 3. Multivitamins. 4. IVIG 30 g IV daily for 5 days. 5. Heparin 5000 units subcu q.8 hours. 6. Vitamin D 2000 units p.o. daily. 7. Aspirin 81 mg p.o. daily. 8. Cholestyramine 4 g p.o. b.i.d. PHYSICAL EXAMINATION: She is well nourished and well hydrated. Temperature 98.1, blood pressure 130 /70, heart rate in the 80s and regular. Respiratory rate is 18 and oxygen saturation is 99% on room air. Lungs are clear bilaterally. Heart is in a regular rhythm without murmurs. Oral mucosa is jessenia st. Neurological Exam: She has ptosis of the left eye, which is fatigable. She has mild left facial wea kness in terms of both eye closure and lower facial strength, but it looks better than yesterday. Sp eech is dysarthric. Tongue protrudes in the midline and palate rises symmetrically. She has good st rength proximally and distally in the upper and lower extremities. She is alert and oriented to pers on, place, and time. Remote and recent memory are intact. There is no tremor in the limbs. DIAGNOSTIC STUDIES/LAB DATA: Laboratory data is from yesterday and reveals unremarkable chemistry pr ofile and CBC. Her forced vital capacity was 2.4 today when given assistance with forming a seal with her mouth. He r negative inspiratory force was -42 cm of water. 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 She i s on her third day of intravenous immunoglobulin today. Her prednisone was decreased from 60 mg to 2 0 mg per day and I would recommend leaving it at that dose for now and might be increased a little bi t at discharge. Dr. Ricketts will be following up for our service tomorrow. I answered questions for Ms Jocelyn Figueroa and her daughter. I told them she may need to see a dietitian and talk about a diabetes ty pe diet if she is going to be on prednisone for very long. I will leave it up to Dr. Ricketts, who is he r regular neurologist. I have spoken to Kathya Dariusz about reinstituting metoprolol because she gets t achycardic when she is not on a beta-lyndsey. I think it is reasonable to do so as long as we are ag gressively treating her myasthenia as this is currently the case. [id number]/[facility] #: [id number]
[2017-07-12] MEDS: Metoprolol Succinate XL TAB* 50 MG PO SCH (21:21)
[2017-07-13] MEDS: Pyridostigmine TAB* 60 MG PO SCH ×4 (05:18→20:34)
[2017-07-13] MEDS: Heparin VIAL(*) 5000 UNITS/ML VIAL (FIVE THOUSAND) SUBCUT SCH ×3 (05:19→21:05)
[2017-07-13] MEDS: Omeprazole CAP(NF) 10 MG CAP PO SCH (08:05)
[2017-07-13] MEDS: predniSONE TAB* 20 MG PO SCH (08:05)
[2017-07-13] MEDS: CMCS Simvastatin TAB(NF) 10 MG TAB PO SCH (08:06)
[2017-07-13] MEDS: Metoprolol Succinate XL TAB* 100 MG PO SCH (08:06)
[2017-07-13] MEDS: Cholecalciferol TAB* 1000 UNITS PO SCH (08:06)
[2017-07-13] MEDS: Aspirin EC TAB* 81 MG TAB.EC PO SCH (08:06)
[2017-07-13] MEDS: Multivitamins/Minerals TAB PO SCH (08:06)
[2017-07-13 09:05] LABS: Hematocrit 37 % (35-47); Hemoglobin 12.6 g/dl (12.0-16.0); Mean Corpuscular HGB Conc 34 g/dl (31-36); Mean Corpuscular Hemoglobin 30 pg (27-31); Mean Corpuscular Volume 90 fL (80-97); Mean Platelet Volume 8.5 um3 (7.4-10.4); Platelet Count 214 10^3/ul (150-450); Red Blood Count 4.15 10^6/ul (4.0-5.4); Red Cell Distribution Width 13 % (10.5-15); White Blood Count 3.7 10^3/ul (3.5-10.8)
--- NOTE | 2017-07-13 09:18 | PN ---
Subjective Date of Service: 07/13/17 Interval History: Mrs. Figueroa reports doing much better today. Good appetite, finished her whole breakfast. Denies any trouble swallowing. Denies chest pain, palpitations, dyspnea or SOB. No double vision or headaches. In general, she has improved since admission. Today, she will receive her 4/5 IG infusion. She has no complaints today. Family History: Unchanged from Admission Social History: Unchanged from Admission Past Medical History: Unchanged from Admission Objective Active Medications: Acetaminophen (Tylenol Tab*) 650 mg PO Q4H PRN PRN Reason: FEVER/PAIN Aspirin (Aspirin Ec Tab*) 81 mg PO DAILY [facility] Last Admin: 07/13/17 08:06 Dose: 81 mg Cholecalciferol (Vitamin D Tab*) 2,000 units PO DAILY [facility] Last Admin: 07/13/17 08:06 Dose: 2,000 units Cholestyramine Resin (Questran*) 4 gm PO BID [facility] Last Admin: 07/12/17 21:21 Dose: 4 gm Heparin Sodium (Porcine) (Heparin Vial(*)) 5,000 units SUBCUT Q8HR [facility] Last Admin: 07/13/17 05:19 Dose: 5,000 units Immune Globulin 30 gm/ IV (Solution) 600 mls @ 0 mls/hr IV 1200 [facility]; Per Protocol PRN Reason: Protocol Stop: 07/14/17 12:01 Last Admin: 07/12/17 13:08 Dose: 46 mls/hr Metoprolol Succinate (Toprol Xl Tab*) 100 mg PO QAM [facility] Last Admin: 07/13/17 08:06 Dose: 100 mg Metoprolol Succinate (Toprol Xl Tab*) 50 mg PO BEDTIME [facility] Last Admin: 07/12/17 21:21 Dose: 50 mg Multivitamins/Minerals (Theragran/Minerals Tab*) 1 tab PO DAILY [facility] Last Admin: 07/13/17 08:06 Dose: 1 tab Omeprazole (Prilosec Cap(Nf)) 10 mg PO DAILY [facility] Last Admin: 07/13/17 08:05 Dose: Not Given Prednisone (Deltasone Tab*) 20 mg PO DAILY [facility] Last Admin: 07/13/17 08:05 Dose: 20 mg Pyridostigmine [place] (Mestinon Tab*) 60 mg PO 0530,1030,1530,2030 [facility] Last Admin: 07/13/17 05:18 Dose: 60 mg Simvastatin (Zocor(Nf)) 5 mg PO DAILY [facility] Last Admin: 07/13/17 08:06 Dose: 5 mg Vital Signs - 8 hr 07/13/17 07/13/17 03:27 07:28 Temperature 98.1 F 97.8 F Pulse Rate 94 69 Respiratory 16 18 Rate Blood Pressure 134/70 128/67 (mmHg) O2 Sat by Pulse 95 99 Oximetry Oxygen Devices in Use Now: None Appearance: Sitting on her her bed, finished eating breakfast, appears comfortable and in NAD. Eyes: No Scleral Icterus, PERRLA, - - Left ptosis noted, unchanged from prior exam. Ears/Nose/Mouth/Throat: Clear Oropharnyx, Mucous Membranes Moist Neck: NL Appearance and Movements; NL JVP, Trachea Midline Respiratory: Symmetrical Chest Expansion and Respiratory Effort, Clear to Auscultation Cardiovascular: NL Sounds; No Murmurs; No JVD, RRR Abdominal: NL Sounds; No Tenderness; No Distention Extremities: No Edema, No Clubbing, Cyanosis Skin: No Rash or Ulcers Neurological: Alert and Oriented x 3, NL Sensation, NL Muscle Strength and Tone Nutrition: Taking PO's Result Diagrams: 07/13/17 08:55 07/11/17 06:39 Additional Lab and Data: . Assess/Plan/Problems-Billing Assessment: Ms. Figueroa is a 71 y.o female with a hx of HTN, HLD, palpitations, IBS and osteoarthritis who presented to the Emergency room after being seen by Dr. King whitfield on 07/09/2017 for furthur management of myasthenia gravis. - Patient Problems (1) Myasthenia exacerbation Current Visit: Yes Status: Acute Comment: - Slurred speech improving, no more episodes of choking on medications, will continue crushing medications for now - speech threapy, PT - Neurology consulted- modified barium swallow scheduled for friday - IVIG as ordered, today is day 4 out of 5 infusions scheduled - steriods, Prednisone 20mg, likely to increase dose upon discharge - continue mestinon QID (2) HLD (hyperlipidemia) Current Visit: Yes Status: Acute Comment: stable - continue zocor (3) HTN (hypertension) Current Visit: Yes Status: Acute Comment: -stable (4) Palpitation Current Visit: Yes Status: Acute Code(s): R00.2 - PALPITATIONS SNOMED Code (s): 84642655 Comment: - has a history of Non-sustained VT and PVC's - metprolol was resumed - currently stable (5) DVT prophylaxis Current Visit: Yes Status: Acute Comment: Heparin SubQ (6) Full code status Current Visit: Yes Status: Acute Status and Disposition: Inpatient for IVIG. Anticipate discharge once medically stable.
[2017-07-13 09:37] LABS: EGFR Non-African American 78.1 (>60)
[2017-07-13] MEDS ORDERED: Potassium Chloride LIQUID* 20 MEQ PACKET PO ONE (10:00)
[2017-07-13] MEDS: Cholestyramine Resin* 4 GM POWDER PO SCH ×2 (11:01→20:38)
--- NOTE | 2017-07-13 11:45 | PN ---
Subjective Date of Service: 07/13/17 Interval History: No problems overnight. She feels her double vision and swallowing are slightly better. She has been walking the halls, no difficulties. She feels her appetite is better as well. Tolerating the IVIG without difficulty. No headaches. Family History: Unchanged from Admission Social History: Unchanged from Admission Past Medical History: Unchanged from Admission Objective Active Medications: Acetaminophen (Tylenol Tab*) 650 mg PO Q4H PRN PRN Reason: FEVER/PAIN Aspirin (Aspirin Ec Tab*) 81 mg PO DAILY [facility] Last Admin: 07/13/17 08:06 Dose: 81 mg Cholecalciferol (Vitamin D Tab*) 2,000 units PO DAILY [facility] Last Admin: 07/13/17 08:06 Dose: 2,000 units Cholestyramine Resin (Questran*) 4 gm PO BID [facility] Last Admin: 07/13/17 11:01 Dose: 4 gm Heparin Sodium (Porcine) (Heparin Vial(*)) 5,000 units SUBCUT Q8HR [facility] Last Admin: 07/13/17 05:19 Dose: 5,000 units Immune Globulin 30 gm/ IV (Solution) 600 mls @ 0 mls/hr IV 1200 [facility]; Per Protocol PRN Reason: Protocol Stop: 07/14/17 12:01 Last Admin: 07/12/17 13:08 Dose: 46 mls/hr Metoprolol Succinate (Toprol Xl Tab*) 100 mg PO QAM [facility] Last Admin: 07/13/17 08:06 Dose: 100 mg Metoprolol Succinate (Toprol Xl Tab*) 50 mg PO BEDTIME [facility] Last Admin: 07/12/17 21:21 Dose: 50 mg Multivitamins/Minerals (Theragran/Minerals Tab*) 1 tab PO DAILY [facility] Last Admin: 07/13/17 08:06 Dose: 1 tab Omeprazole (Prilosec Cap(Nf)) 10 mg PO DAILY [facility] Last Admin: 07/13/17 08:05 Dose: Not Given Prednisone (Deltasone Tab*) 20 mg PO DAILY [facility] Last Admin: 07/13/17 08:05 Dose: 20 mg Pyridostigmine [place] (Mestinon Tab*) 60 mg PO 0530,1030,1530,2030 [facility] Last Admin: 07/13/17 10:13 Dose: 60 mg Simvastatin (Zocor(Nf)) 5 mg PO DAILY [facility] Last Admin: 07/13/17 08:06 Dose: 5 mg Vital Signs 07/12/17 07/12/17 07/12/17 11:40 13:08 13:12 Temperature 98.1 F 98.0 F Pulse Rate 78 Respiratory 16 Rate Blood Pressure 120/74 129/71 (mmHg) O2 Sat by Pulse 100 Oximetry 07/12/17 07/12/17 07/12/17 13:22 13:37 13:45 Temperature 98.7 F Pulse Rate Respiratory Rate Blood Pressure 121/65 124/70 (mmHg) O2 Sat by Pulse Oximetry 07/12/17 07/12/17 07/12/17 13:52 14:07 14:13 Temperature 98.1 F 98.1 F Pulse Rate Respiratory Rate Blood Pressure 122/72 121/70 (mmHg) O2 Sat by Pulse Oximetry 07/12/17 07/12/17 07/12/17 14:22 14:27 14:37 Temperature 98.1 F Pulse Rate Respiratory Rate Blood Pressure 129/69 123/68 (mmHg) O2 Sat by Pulse Oximetry 07/12/17 07/12/17 07/12/17 14:52 14:53 15:07 Temperature 98.8 F Pulse Rate 82 Respiratory 16 Rate Blood Pressure 136/70 135/71 140/74 (mmHg) O2 Sat by Pulse 98 Oximetry 07/12/17 07/12/17 07/12/17 15:22 15:32 15:37 Temperature 97.9 F Pulse Rate Respiratory Rate Blood Pressure 130/81 120/62 (mmHg) O2 Sat by Pulse Oximetry 07/12/17 07/12/17 07/12/17 15:52 15:58 16:07 Temperature 98.0 F Pulse Rate Respiratory Rate Blood Pressure 113/51 133/69 (mmHg) O2 Sat by Pulse Oximetry 07/12/17 07/12/17 07/12/17 16:22 16:32 19:44 Temperature 98.0 F Pulse Rate 76 Respiratory 20 Rate Blood Pressure 146/73 114/67 (mmHg) O2 Sat by Pulse 99 Oximetry 07/12/17 07/12/17 07/13/17 20:00 23:29 03:27 Temperature 97.5 F 98.1 F Pulse Rate 83 94 Respiratory 16 18 16 Rate Blood Pressure 122/64 134/70 (mmHg) O2 Sat by Pulse 98 95 Oximetry 07/13/17 07:28 Temperature 97.8 F Pulse Rate 69 Respiratory 18 Rate Blood Pressure 128/67 (mmHg) O2 Sat by Pulse 99 Oximetry Oxygen Devices in Use Now: None Neurology Exam: General: HEENT: Normocephalic/atraumatic, sclera anicteric, mucous membranes moist Neck: Supple, no bruits Chest: Clear to auscultation bilaterally Cardiovascular: Regular rate and rhythm without murmurs, rubs, gallops Abdomen: Soft, nontender/nondistended Extremities: No clubbing, cyanosis, or edema Skin: Warm and dry. Neurological Findings: Awake, Alert, Oriented x3 Speech: fluent without dysarthria some difficulty with Ka, Ga sounds, repetition intact, recall intact Cranial Nerve: PEERL 4-->2.5mm, EOM intact no diplopia currently, VFF, no nystagmus, ptosis left eye, improved, mild left mouth weakness, facial sensation intact, hearing intact to finger rub bilaterally, palate elevates symmetrically, tongue midline, SCM and Trapezius 5/5 Motor: 5/5 throughout, proximal and distal extremities x4 tone/bulk normal. Some fatiguing after multiple reps Sensation: intact to LT/PP bilaterally upper and lower extremities Finger to nose, rapid alternating movements intact without tremor, no dysdiadochokinesia Gait: intact with good arm swing and stride Result Diagrams: 07/13/17 08:55 07/13/17 08:55 Additional Lab and Data: . Assessment/Plan Assessment: 71 year old with Myasthenia Gravis Crisis, admitted for IVIG and steroid initiation. History of IBS, HTN, HLD, Palpitations. 1. Continue IVIG: Day 4/5 today. Tolerating well. Renal function is stable. Continue Mestinon. 2. Continue Prednisone 20mg, will likely increase to 30mg on discharge 3. Barium swallow tomorrow. On modified diet for dysphagia 4. Plan to consider/start steroid-sparring medication as outpatient. I gave her medication information at the last office visit which she is reviewing. 5. She has list of medications to avoid taking with MG. Her beta-lyndsey was stopped this admission but restarted due to palpitations and she seems to be tolerating it. 6. Mild hypokalemia: Replacement given 7. She knows to seek help immediately/go to ER if her condition worsens.
[2017-07-13] MEDS: IMMUNE GLOBULN IV SCH (12:53)
[2017-07-13] MEDS: Metoprolol Succinate XL TAB* 50 MG PO SCH (20:34)
[2017-07-14] MEDS: Pyridostigmine TAB* 60 MG PO SCH ×4 (05:12→20:55)
[2017-07-14] MEDS: Heparin VIAL(*) 5000 UNITS/ML VIAL (FIVE THOUSAND) SUBCUT SCH ×3 (05:13→20:55)
[2017-07-14 07:16] LABS: EGFR Non-African American 83.4 (>60)
[2017-07-14] MEDS: Aspirin EC TAB* 81 MG TAB.EC PO SCH (08:48)
[2017-07-14] MEDS: predniSONE TAB* 20 MG PO SCH (08:49)
[2017-07-14] MEDS: Metoprolol Succinate XL TAB* 100 MG PO SCH (08:49)
[2017-07-14] MEDS: Cholecalciferol TAB* 1000 UNITS PO SCH (08:49)
[2017-07-14] MEDS: Multivitamins/Minerals TAB PO SCH (08:50)
[2017-07-14] MEDS: CMCS Simvastatin TAB(NF) 10 MG TAB PO SCH (08:50)
[2017-07-14] MEDS: Omeprazole CAP(NF) 10 MG CAP PO SCH (09:48)
[2017-07-14] MEDS: Cholestyramine Resin* 4 GM POWDER PO SCH ×2 (10:10→20:55)
[2017-07-14] MEDS: IMMUNE GLOBULN IV SCH (13:08)
--- NOTE | 2017-07-14 13:55 | RAD ---
CPT II Codes: G9500 INDICATION: Dysphagia. Approximate 1.8 minutes of fluoroscopy time was used. Please see speech pathology results for further evaluation. The study was performed utilizing a variety of consistencies of contrast. IMPRESSION: Swallowing evaluation was performed by speech pathology. Fluoroscopic services provided for speech pathology.
--- NOTE | 2017-07-14 14:35 | PN ---
Subjective Date of Service: 07/14/17 Interval History: Patient was seen and examined at bedside. She continues to improve on a daily basis. Denies difficulty breathing, chest pain or SOB. Her diplobia is getting better. Had her modified barium swallow study earlier today. Her appetite is good, no choking episodes. Has no complaints today. He is being infused with the last bag 5/5 of IG, tolerated well. Family History: Unchanged from Admission Social History: Unchanged from Admission Past Medical History: Unchanged from Admission Objective Active Medications: Acetaminophen (Tylenol Tab*) 650 mg PO Q4H PRN PRN Reason: FEVER/PAIN Aspirin (Aspirin Ec Tab*) 81 mg PO DAILY [facility] Last Admin: 07/14/17 08:48 Dose: 81 mg Cholecalciferol (Vitamin D Tab*) 2,000 units PO DAILY [facility] Last Admin: 07/14/17 08:49 Dose: 2,000 units Cholestyramine Resin (Questran*) 4 gm PO BID [facility] Last Admin: 07/14/17 10:10 Dose: 4 gm Heparin Sodium (Porcine) (Heparin Vial(*)) 5,000 units SUBCUT Q8HR [facility] Last Admin: 07/14/17 13:58 Dose: 5,000 units Metoprolol Succinate (Toprol Xl Tab*) 100 mg PO QAM [facility] Last Admin: 07/14/17 08:49 Dose: 100 mg Metoprolol Succinate (Toprol Xl Tab*) 50 mg PO BEDTIME [facility] Last Admin: 07/13/17 20:34 Dose: 50 mg Multivitamins/Minerals (Theragran/Minerals Tab*) 1 tab PO DAILY [facility] Last Admin: 07/14/17 08:50 Dose: 1 tab Omeprazole (Prilosec Cap(Nf)) 10 mg PO DAILY [facility] Last Admin: 07/14/17 09:48 Dose: Not Given Prednisone (Deltasone Tab*) 20 mg PO DAILY [facility] Last Admin: 07/14/17 08:49 Dose: 20 mg Pyridostigmine [place] (Mestinon Tab*) 60 mg PO 0530,1030,1530,2030 [facility] Last Admin: 07/14/17 09:47 Dose: 60 mg Simvastatin (Zocor(Nf)) 5 mg PO DAILY [facility] Last Admin: 07/14/17 08:50 Dose: 5 mg Vital Signs - 8 hr 07/14/17 07/14/17 07/14/17 07:57 08:00 12:14 Temperature 97.9 F 98.3 F Pulse Rate 69 68 Respiratory 16 16 16 Rate Blood Pressure 124/62 127/68 (mmHg) O2 Sat by Pulse 99 100 Oximetry 07/14/17 07/14/17 07/14/17 13:30 13:44 13:58 Temperature 97.9 F 98.0 F 98.1 F Pulse Rate 79 73 78 Respiratory 14 14 16 Rate Blood Pressure 117/68 119/62 127/68 (mmHg) O2 Sat by Pulse 98 100 97 Oximetry 07/14/17 14:20 Temperature 98.0 F Pulse Rate 71 Respiratory 16 Rate Blood Pressure 109/54 (mmHg) O2 Sat by Pulse 97 Oximetry Oxygen Devices in Use Now: None Appearance: Appears comfortable, watching TV, in NAD. Eyes: No Scleral Icterus, - - Left ptosis improving compared to previous 2 days Ears/Nose/Mouth/Throat: Clear Oropharnyx, Mucous Membranes Moist Neck: NL Appearance and Movements; NL JVP, Trachea Midline Respiratory: Symmetrical Chest Expansion and Respiratory Effort, Clear to Auscultation Cardiovascular: NL Sounds; No Murmurs; No JVD, RRR Abdominal: NL Sounds; No Tenderness; No Distention Extremities: No Edema Skin: No Rash or Ulcers Neurological: Alert and Oriented x 3, NL Sensation Nutrition: Taking PO's Result Diagrams: 07/13/17 08:55 07/14/17 06:38 Additional Lab and Data: . Diagnostic Imaging: Modified barium swallowing study is pending at this time Assess/Plan/Problems-Billing Assessment: 71 year old with Myasthenia Gravis Crisis, admitted for IVIG and steroid initiation. History of IBS, HTN, HLD, Palpitations. She is clinically improving. - Patient Problems (1) Myasthenia exacerbation Current Visit: Yes Status: Acute Comment: - Slurred speech improving, no more episodes of choking on medications, will continue crushing medications for now - speech threapy, PT - Neurology consulted- modified barium swallow done, results pending - IVIG as ordered, today is day 5 out of 5 infusions scheduled - steriods, Prednisone 20mg, likely to increase dose upon discharge - continue mestinon QID (2) HLD (hyperlipidemia) Current Visit: Yes Status: Acute Comment: stable - continue zocor (3) HTN (hypertension) Current Visit: Yes Status: Acute Comment: -stable (4) Palpitation Current Visit: Yes Status: Acute Code(s): R00.2 - PALPITATIONS SNOMED Code (s): 04553272 Comment: - has a history of Non-sustained VT and PVC's - metprolol was resumed - currently stable (5) DVT prophylaxis Current Visit: Yes Status: Acute Comment: Heparin SubQ (6) Full code status Current Visit: Yes Status: Acute Status and Disposition: Inpatient for IVIG. Anticipate discharge once medically stable, likely in AM 07/15
[2017-07-14] MEDS: Metoprolol Succinate XL TAB* 50 MG PO SCH (20:55)
--- NOTE | 2017-07-15 01:18 | CONS ---
NEUROLOGY FOLLOWUP: DATE OF FOLLOWUP: 07/14/17 LOCATION: She is an inpatient in [facility]. HOSPITALIST: AGUSTIN Prajapati CHIEF COMPLAINT: Myasthenia gravis. INTERVAL HISTORY: Since yesterday, Ms. Figueroa notes gradual improvement. She still will get some double vision, but she does not get as much ptosis. She feels her speech and her swallowing is better. She does not have any shortness of breath. No intestinal complaints. MEDICATIONS: Reviewed and she finished her last dose of intravenous immunoglobulin today. She is on: 1. Aspirin 81 mg p.o. q. day. 2. Questran 4 g p.o. b.i.d. 3. Metoprolol XL 50 mg p.o. q.h.s. and 100 mg p.o. q.a.m. 4. Omeprazole 10 mg p.o. q. day. 5. Prednisone 20 mg p.o. q. day. 6. Pyridostigmine 60 mg p.o. 4 times per day. 7. Simvastatin 5 mg p.o. q. day. PHYSICAL EXAMINATION: She is well nourished and well hydrated. Temperature 97.9, blood pressure 129/65, heart rate 70s and regular. Respiratory rate is 16 , oxygen saturation 96% on room air. Lungs are clear. Eye movements are notable for limited abduction O.D., limited upgaze O.D. as well. She has ptosis of the left eye, but it is much less than previously. She has mild left facial weakness also less than previously. Speech is clear today. Extremity strength is intact. She is alert and in good spirits. DIAGNOSTIC STUDIES/LAB DATA: New laboratory data from today notable for a magnesium of 1.8, sodium 136, otherwise normal chemistry profile. IMPRESSION AND PLAN: Impression is that of improved myasthenia gravis after intravenous immunoglobulin. She has also been started on steroids. I would recommend she be discharged tomorrow unless there are changes through the night. Recommend increasing her prednisone to 30 mg once per day in the morning. She should continue with proton pump inhibitors. She will need routine blood test monitoring and will follow up with Dr. Ricketts in our office. She should continue her pyridostigmine as before. [id number]/[facility] #: [id number] [facility]
[2017-07-15] MEDS: Pyridostigmine TAB* 60 MG PO SCH ×2 (05:46→09:31)
[2017-07-15] MEDS: Heparin VIAL(*) 5000 UNITS/ML VIAL (FIVE THOUSAND) SUBCUT SCH (05:54)
[2017-07-15] MEDS: Omeprazole CAP(NF) 10 MG CAP PO SCH (08:52)
[2017-07-15] MEDS: Aspirin EC TAB* 81 MG TAB.EC PO SCH (08:54)
[2017-07-15] MEDS: Metoprolol Succinate XL TAB* 100 MG PO SCH (08:54)
[2017-07-15] MEDS: Multivitamins/Minerals TAB PO SCH (08:55)
[2017-07-15] MEDS: predniSONE TAB* 20 MG PO SCH (08:55)
[2017-07-15] MEDS: Cholecalciferol TAB* 1000 UNITS PO SCH (08:55)
[2017-07-15] MEDS: CMCS Simvastatin TAB(NF) 10 MG TAB PO SCH (08:55)
[2017-07-15] MEDS: Cholestyramine Resin* 4 GM POWDER PO SCH (10:06)
[2017-07-15 12:01] VITALS: BP 130/70
--- NOTE | 2017-07-16 16:23 | DS ---
CC: Dr. Charli Ricketts* DISCHARGE SUMMARY: DATE OF ADMISSION: 07/10/17 DATE OF DISCHARGE: 07/15/17 ADMITTING PHYSICIAN: Jasmin Cortes MD. ATTENDING PHYSICIAN: Jamie Medina MD. ATTENDING HOSPITALIST WHILE IN THE HOSPITAL: Yari Horner DO* (DICTATED BY AGUSTIN BEST) ADMISSION DIAGNOSES: 1. Myasthenia gravis crisis. 2. Palpation. 3. Hypertension. 4. Hyperlipidemia. 5. History of osteoarthritis. 6. Irritable bowel syndrome. DISCHARGE DIAGNOSES: 1. Myasthenia gravis crisis. 2. Palpation. 3. Hypertension. 4. Hyperlipidemia. 5. History of osteoarthritis. 6. Irritable bowel syndrome. 7. Hypokalemia. CONSULTATION: Charli Ricketts MD, and Silverio Cisneros MD. PROCEDURES: None. BRIEF MEDICAL HISTORY: Ms. Figueroa is a pleasant 71-year-old female with past medical history significant for myasthenia gravis, irritable bowel syndrome, and palpitation. The patient was seen at Dr. Ricketts's office back on 07/10/17 that thought to be in myasthenia gravis crisis. She reports that for approximately a week or so she has had increased complaints of double vision, slurred speech, left- sided of her mouth droop as well as difficulty swallowing and mild neck weakness. She also had increased fatigue but denied any trouble breathing or other associated symptoms. The patient states that her last flare- ups of myasthenia gravis was back in May where she did receive IV immunoglobulins on the period from 05/26/17 to 05/31/17. She moved to the area of [place] recently where she used to reside in [place] and she saw Dr. Ricketts for neurology consultation shortly after she moved in the area. Given her ongoing symptoms and her known history of myasthenia gravis, she was directly admitted under hospitalist medicine with neurologic consultation for further management. HOSPITAL COURSE: The patient was admitted to the telemetry unit for close observation. Neurologic consultation was obtained and the patient started her first treatment of IV immunoglobulins on the day of admission and the plan was to keep her for 5 days for 1 infusion every day. She also had episodes of tachycardia with PVCs as well as palpitation; however, her metoprolol initially was held due to myasthenia gravis crisis, but she was resumed on her metoprolol and eventually her palpitation was resolved. She has been chronically on prednisone as an outpatient and we resumed her prednisone after admission. She also received respiratory checkups every 4 hours as well as neurologic checkups every 4 hours. She had a good vital capacity and showed no evidence of any respiratory distress. The patient continued to improve clinically on a daily basis. Her laboratory workup was checked in the first 3 days of admission, revealed normal hemoglobin and hematocrit. Her chemistry panel revealed a mild hypokalemia that was corrected given oral and IV runs as indicated. She continued to receive neurologic checkups and neurologic examination every day and recommendation was made for her to go for modified barium swallowing study, which she had done the day before her discharge. The patient continued to improve clinically, she tolerated diet very well, and had initially complained of some choking sensation taking her tablets for which we crushed her medication and after that she did not have any more choking episodes. She was maintained on soft and mechanically ground diet and will be discharged home on such diet for the time being, to be evaluated again with a swallowing study as an outpatient per Dr. Ricketts's recommendation. On discharge day, she was ambulatory out of bed in a stable condition. She denied any complaints of weakness, ptosis, double vision, or difficulty breathing. She will be discharged to home today and will be seen by Dr. Ricketts in the office later this week for a followup. She will resume her home medication as instructed with addition of prednisone. DISCHARGE MEDICATIONS: Include, 1. Aspirin 81 mg p.o. daily. 2. Cholestyramine 4 g p.o. b.i.d. 3. Metoprolol 100 mg p.o. q. a.m. 4. Metoprolol XL 50 mg p.o. q. p.m. 5. Multiple vitamins 1 tablet daily. 6. Omeprazole 10 mg p.o. daily. 7. Prednisone tablets 30 mg p.o. daily. 8. Pyridostigmine 60 mg p.o. q.i.d. 9. Zocor 5 mg p.o. daily. PROBLEM LIST: 1. Myasthenia gravis crisis. The patient received a full 5 days of IV immunoglobulin infusions and she is clinically stable for discharge. 2. Irritable bowel syndrome. The patient will continue her cholestyramine as indicated. 3. Palpitation, rate controlled, and she will continue taking her metoprolol as directed. 4. Hyperlipidemia. She will continue her Zocor. AGUSTIN BEST [id number]/[facility] #: [id number] [facility]
== END 2017-07-15 14:27 | disposition home or self-care (01) | DRG 57 ==
LOC: ED 11:41 → MEDTELE 14:03
PROVIDERS: ADMIT Internal Medicine; ATTEND Internal Medicine
PROC: 30233S1 Transfusion of Nonautologous Globulin into Peripheral Vein, Percutaneous Approach (ICD-10-PCS; principal; 2017-07-10)
DX: G70.01 Myasthenia gravis with (acute) exacerbation (principal); I10 Essential (primary) hypertension; E78.5 Hyperlipidemia, unspecified; M19.90 Unspecified osteoarthritis, unspecified site; K58.9 Irritable bowel syndrome, unspecified; E87.6 Hypokalemia; Z96.643 Presence of artificial hip joint, bilateral; R19.7 Diarrhea, unspecified; R21 Rash and other nonspecific skin eruption; R00.0 Tachycardia, unspecified; I49.3 Ventricular premature depolarization; Z90.89 Acquired absence of other organs; Z88.5 Allergy status to narcotic agent; Z91.010 Allergy to peanuts; Z82.49 Family history of ischemic heart disease and other diseases of the circulatory system; Z56.0 Unemployment, unspecified; Z79.82 Long term (current) use of aspirin; Z79.52 Long term (current) use of systemic steroids; Z83.3 Family history of diabetes mellitus; Z72.89 Other problems related to lifestyle
CPT/HCPCS: 36415; 74230; 80048; 80053; 82330; 82607; 83735; 84100; 84443; 85025; 85027; 93005; 94150; 99283; A9270-GY; G8978-GP-CJ; G8979-GP-CI; J1568; J1644; J7512

== ENCOUNTER 2018-09-08 08:11 | Emergency (ER) | payer MEDICARE, OTHER ==
--- OUTSIDE RECORDS SUMMARY | 2018-09-08 08:24 | XMS REPORT | Continuity of Care Document ---
:1945 External Reference #:[id number] Author Name Laurent Amin Care Team Providers Name Role Phone Taisha Lucero M.D. Primary Care Physician Unavailable Payers Date Identification Numbers Payment Provider Subscriber Policy Number: [id number] Medicare Maisha Ramirez PayID: [id number] [address] [place] [address] Policy Number: [id number] [facility] DD Maisha Ramirez PayID: [id number] [address] [place] [address] Expires: 2017 Policy Number: [id number] Medicare Maisha Ramirez PayID: [id number] [address] [place] [address] Problems Active Problems Provider Date Dyspnea Charli Ricketts M.D. Onset: 05/13/2018 Long-term current use of systemic steroid Charli Ricketts M.D. Onset: 09/24 Myasthenia gravis Charli Ricketts M.D. Onset: 07/09/2017 Family History Date Family Member(s) Observation Comments General Diabetes General CT General Heart Disease Father Heart Disease Father stomach ulcers Mother Diabetes Mother CT First Brother CT Social History Type Date Description Comments Sex Unknown Marital Status Lives With Daughter Occupation Retired Tobacco Use Start: Unknown Never Smoked Cigarettes ETOH Use Rarely consumes alcohol Tobacco Use Start: Unknown Patient has never smoked Recreational Drug Use Denies Drug Use Smoking Status Reviewed: 08/19/18 Patient has never smoked Exercise Type/Frequency Exercises sporadically Allergies, Adverse Reactions, Alerts Active Allergies Reaction Severity Comments Date Codeine 06/27/2017 Oxycodone 06/27/2017 Peanut Allergenic Extract 06/27/2017 Medications Active Medications SIG Qnty Indications Ordering Provider Date Prednisone 03/11 by mouth 45tabs G70.00 [facility], 02/04/2018 10mg every day M.D. Tablets Imuran take 3 pills a 270tabs G70.00 Antonio Mayorga, 09/24/2017 50mg Tablets day N.P. Questran take 1 packet 180units [facility], 4gm Packet twice daily M.D. Mestinon 1 tab by mouth 360tabs [facility], 60mg Tablets 4 times daily M.D. Aspir-81 1 by mouth Unknown 81mg Tablets every day Multivitamin Adult 1 by mouth Unknown every day Tablets Omeprazole 1 by mouth 90caps [facility], 10mg every day M.D. Capsules Metoprolol Succinate 1 by mouth in 90tabs Unknown ER am and 1/2 100mg Tablets ER tab in 24HR evening. Calcium 500 +D 1 by mouth Unknown daily [id number] Tablets History Medications Prednisone take 1 by mouth 30tabs G70.00 [facility], 11/12/2017 - 20mg once a day M.D. 02/04/2018 Tablets Prednisone Take 2 by mouth 180tabs G70.00 [facility], 07/24/2017 - 20mg once a day- takes M.D. 11/12/2017 Tablets 1 and 1/2 tabs daily Pyridostigmine 1 by mouth four Unknown - [place] times a day 07/23/2017 60mg Tablets Prednisone one and a half G70.00 Unknown - 20mg tabs by mouth 07/24/2017 Tablets everyday Zocor one by mouth every Unknown - 5mg Tablets day 08/05/2017 O'Brien 3 1 tab by mouth Unknown - 1000mg twice daily 07/08/2017 Capsules Vitamin D3 Super 1 by mouth every Unknown - Strength day 07/08/2017 2000Unit Tablets Calcium Citrate + D3 2 tabs by mouth Unknown - daily 07/08/2017 [id number] Tablets Vitamin C 1 by mouth every Unknown - 500mg day 07/08/2017 Chewtabs Toprol XL 1 by mouth in am Unknown - 100mg and 1/2 tab at 08/05/2017 Tablets ER 24HR bedtime Cholestyramine takes twice daily Unknown - 4gm 07/23/2017 Packet Metoprolol Succinate 1 by mouth every Unknown - ER day 06/23/2017 50mg Tablets ER 24HR Ipratropium 1 vial in Unknown - [place]/Albuterol nebulizer three 07/08/2017 Sulfate times a day as needed for asthma 0.5-2.5(3)mg/3ML Solution Lovenox 1 injection Unknown - 40mg/0.4ML subcutaneous every 07/08/2017 Solution 24 hours Benadryl Allergy as needed Unknown - 25mg 07/08/2017 Capsules Tylenol 8 Hour 1 tab every 4 Unknown - 650mg hours as needed 07/08/2017 Tablets ER for pain or fever Vital Signs Date Vital Result Comment 08/19/2018 4:03pm Height 61 inches 5'1" Weight 208.00 lb Heart Rate 88 /min BP Systolic 128 mmHg BP Diastolic 80 mmHg BMI (Body Mass Index) 39.3 kg/m2 05/13/2018 8:28am Height 61 inches 5'1" Weight 203.00 lb Heart Rate 85 /min BP Systolic Sitting 126 mmHg R BP Diastolic Sitting 76 mmHg R Respiratory Rate 18 /min O2 % BldC Oximetry 98 % BMI (Body Mass Index) 38.4 kg/m2 04/15/2018 12:55pm Height 61.50 inches 5'1.50" Weight 204.25 lb Heart Rate 84 /min BP Systolic Sitting 132 mmHg R BP Diastolic Sitting 80 mmHg R Respiratory Rate 18 /min Pain Level 4 back BMI (Body Mass Index) 38.0 kg/m2 02/04/2018 2:33pm Height 61.50 inches 5'1.50" Weight 198.00 lb BP Systolic Sitting 128 mmHg BP Diastolic Sitting 70 mmHg Respiratory Rate 12 /min BMI (Body Mass Index) 36.8 kg/m2 11/12/2017 1:55pm Height 61.50 inches 5'1.50" Weight 182.00 lb Heart Rate 100 /min BP Systolic 112 mmHg BP Diastolic 84 mmHg Respiratory Rate 16 /min Pain Level 0 O2 % BldC Oximetry 97 % BMI (Body Mass Index) 33.8 kg/m2 09/24/2017 1:40pm Height 61.50 inches 5'1.50" Weight 175.25 lb Heart Rate 102 /min BP Systolic Sitting 116 mmHg BP Diastolic Sitting 62 mmHg Respiratory Rate 18 /min O2 % BldC Oximetry 97 % BMI (Body Mass Index) 32.6 kg/m2 08/06/2017 1:53pm Height 61.50 inches 5'1.50" Weight 171.00 lb Heart Rate 73 /min BP Systolic 120 mmHg BP Diastolic 76 mmHg Respiratory Rate 16 /min Pain Level 0 O2 % BldC Oximetry 98 % BMI (Body Mass Index) 31.8 kg/m2 07/24/2017 9:03am Height 61.50 inches 5'1.50" Weight 169.25 lb Heart Rate 56 /min BP Systolic Sitting 106 mmHg BP Diastolic Sitting 60 mmHg Respiratory Rate 16 /min BMI (Body Mass Index) 31.5 kg/m2 07/09/2017 1:13pm Height 61.50 inches 5'1.50" Weight 168.00 lb Heart Rate 76 /min BP Systolic 126 mmHg BP Diastolic 80 mmHg Respiratory Rate 16 /min Pain Level 0 O2 % BldC Oximetry 96 % BMI (Body Mass Index) 31.2 kg/m2 Results Test Date Facility Test Result H/L Range Note CBC Auto Diff 06/19/2018 [facility] White Blood 7.3 10^3/uL N 3.5-10.[address] [place] [address] [phone] Red Blood Count 4.31 10^6/uL N 3.70-4.87 Hemoglobin 14.2 g/dL N 12.0-16.0 Hematocrit 42 % High 33-41 Mean Corpuscular Volume 97 fL N 80-97 Mean Corpuscular Hemoglobin 33 pg High 27-31 Mean Corpuscular HGB Conc 34 g/dL N 31-36 Red Cell Distribution Width 13 % N 10.5-15 Platelet Count 261 10^3/uL N 150-450 Mean Platelet Volume 8.4 fL N 7.4-10.4 Abs Neutrophils 6.5 10^3/uL N 1.5-7.7 Abs Lymphocytes 0.5 10^3/uL Low 1.0-4.8 Abs Monocytes 0.3 10^3/uL N 0-0.8 Abs Eosinophils 0 10^3/uL N 0-0.6 Abs Basophils 0 10^3/uL N 0-0.2 Abs Nucleated RBC 0 10^3/uL Granulocyte % 89.5 % Lymphocyte % 6.5 % Monocyte % 3.6 % Eosinophil % 0 % Basophil % 0.4 % Nucleated Red Blood Cells % 0.1 Comp Metabolic Panel 06/19/2018 [facility] Sodium 140 mmol/L N 135-[address] [place] [address] [phone] Potassium 4.5 mmol/L N 3.5-5.0 Chloride 108 mmol/L N 101-111 Co2 Carbon Dioxide 26 mmol/L N 22-32 Anion Gap 6 mmol/L N 2-11 Glucose 149 mg/dL High 70-100 Blood Urea Nitrogen 15 mg/dL N 6-24 Creatinine 0.74 mg/dL N 0.51-0.95 BUN/Creatinine Ratio 20.3 High 8-20 Calcium 9.3 mg/dL N 8.6-10.3 Total Protein 6.6 g/dL N 6.4-8.9 Albumin 3.8 g/dL N 3.2-5.2 Globulin 2.8 g/dL N 2-4 Albumin/Globulin Ratio 1.4 N 1-3 Total Bilirubin 0.50 mg/dL N 0.2-1.0 Alkaline Phosphatase 51 U/L N 34-104 Alt 17 U/L N 7-52 Ast 20 U/L N 13-39 Egfr Non- 76.7 >60 Egfr 92.8 >60 1 CBC Auto Diff 04/15/2018 [facility] White Blood 7.1 10^3/uL N 3.5-10.[address] [place] [address] [phone] Red Blood Count 4.14 10^6/uL N 4.00-5.40 Hemoglobin 13.7 g/dL N 12.0-16.0 Hematocrit 41 % N 35-47 Mean Corpuscular Volume 99 fL High 80-97 Mean Corpuscular Hemoglobin 33 pg High 27-31 Mean Corpuscular HGB Conc 33 g/dL N 31-36 Red Cell Distribution Width 13 % N 10.5-15 Platelet Count 222 10^3/uL N 150-450 Mean Platelet Volume 8.7 fL N 7.4-10.4 Abs Neutrophils 6.4 10^3/uL N 1.5-7.7 Abs Lymphocytes 0.5 10^3/uL Low 1.0-4.8 Abs Monocytes 0.2 10^3/uL N 0-0.8 Abs Eosinophils 0 10^3/uL N 0-0.6 Abs Basophils 0 10^3/uL N 0-0.2 Abs Nucleated RBC 0 10^3/uL Granulocyte % 90.1 % Lymphocyte % 7.0 % Monocyte % 2.6 % Eosinophil % 0 % Basophil % 0.3 % Nucleated Red Blood Cells % 0 Comp Metabolic Panel 04/15/2018 [facility] Sodium 139 mmol/L N 135-[address] [place] [address] [phone] Potassium 4.4 mmol/L N 3.5-5.0 Chloride 106 mmol/L N 101-111 Co2 Carbon Dioxide 29 mmol/L N 22-32 Anion Gap 4 mmol/L N 2-11 Glucose 133 mg/dL High 70-100 Blood Urea Nitrogen 17 mg/dL N 6-24 Creatinine 0.84 mg/dL N 0.51-0.95 BUN/Creatinine Ratio 20.2 High 8-20 Calcium 9.2 mg/dL N 8.6-10.3 Total Protein 6.4 g/dL N 6.4-8.9 Albumin 3.8 g/dL N 3.2-5.2 Globulin 2.6 g/dL N 2-4 Albumin/Globulin Ratio 1.5 N 1-3 Total Bilirubin 0.50 mg/dL N 0.2-1.0 Alkaline Phosphatase 43 U/L N 34-104 Alt 15 U/L N 7-52 Ast 21 U/L N 13-39 Egfr Non- 66.3 >60 Egfr 80.2 >60 2 CBC Auto Diff 02/04/2018 [facility] White Blood 7.8 10^3/uL N 3.5-10.[address] [place] [address] [phone] Red Blood Count 4.37 10^6/uL N 4.00-5.40 Hemoglobin 14.3 g/dL N 12.0-16.0 Hematocrit 42 % N 35-47 Mean Corpuscular Volume 97 fL N 80-97 Mean Corpuscular Hemoglobin 33 pg High 27-31 Mean Corpuscular HGB Conc 34 g/dL N 31-36 Red Cell Distribution Width 14 % N 10.5-15 Platelet Count 258 10^3/uL N 150-450 Mean Platelet Volume 8.7 fL N 7.4-10.4 Abs Neutrophils 6.9 10^3/uL N 1.5-7.7 Abs Lymphocytes 0.6 10^3/uL Low 1.0-4.8 Abs Monocytes 0.2 10^3/uL N 0-0.8 Abs Eosinophils 0 10^3/uL N 0-0.6 Abs Basophils 0 10^3/uL N 0-0.2 Abs Nucleated RBC 0 10^3/uL Granulocyte % 88.6 % Lymphocyte % 8.2 % Monocyte % 2.8 % Eosinophil % 0 % Basophil % 0.4 % Nucleated Red Blood Cells % 0 Comp Metabolic Panel 02/04/2018 [facility] Sodium 138 mmol/L N 135-[address] [place] [address] [phone] Potassium 4.9 mmol/L N 3.5-5.0 Chloride 105 mmol/L N 101-111 Co2 Carbon Dioxide 27 mmol/L N 22-32 Anion Gap 6 mmol/L N 2-11 Glucose 112 mg/dL High 70-100 Blood Urea Nitrogen 21 mg/dL N 6-24 Creatinine 0.73 mg/dL N 0.51-0.95 BUN/Creatinine Ratio 28.8 High 8-20 Calcium 9.5 mg/dL N 8.6-10.3 Total Protein 6.6 g/dL N 6.4-8.9 Albumin 3.9 g/dL N 3.2-5.2 Globulin 2.7 g/dL N 2-4 Albumin/Globulin Ratio 1.4 N 1-3 Total Bilirubin 0.50 mg/dL N 0.2-1.0 Alkaline Phosphatase 54 U/L N 34-104 Alt 17 U/L N 7-52 Ast 21 U/L N 13-39 Egfr Non- 77.9 >60 Egfr 94.3 >60 3 CBC Auto Diff 09/24/2017 [facility] White Blood 8.7 10^3/uL N 3.5-10.[address] [place] [address] [phone] Red Blood Count 4.39 10^6/uL N 4.00-5.40 Hemoglobin 14.0 g/dL N 12.0-16.0 Hematocrit 42 % N 35-47 Mean Corpuscular Volume 95 fL N 80-97 Mean Corpuscular Hemoglobin 32 pg High 27-31 Mean Corpuscular HGB Conc 34 g/dL N 31-36 Red Cell Distribution Width 14 % N 10.5-15 Platelet Count 204 10^3/uL N 150-450 Mean Platelet Volume 9.6 um3 N 7.4-10.4 Abs Neutrophils 7.9 10^3/uL High 1.5-7.7 Abs Lymphocytes 0.6 10^3/uL Low 1.0-4.8 Abs Monocytes 0.2 10^3/uL N 0-0.8 Abs Eosinophils 0 10^3/uL N 0-0.6 Abs Basophils 0 10^3/uL N 0-0.2 Abs Nucleated RBC 0 10^3/uL Granulocyte % 91.6 % High 38-83 Lymphocyte % 6.4 % Low 25-47 Monocyte % 1.8 % N 0-7 Eosinophil % 0 % N 0-6 Basophil % 0.2 % N 0-2 Nucleated Red Blood Cells % 0.1 Comp Metabolic Panel 09/24/2017 [facility] Sodium 140 mmol/L N 135-145 [address] [place] [address] [phone] Potassium 4.5 mmol/L N 3.5-5.0 Chloride 103 mmol/L N 101-111 Co2 Carbon Dioxide 27 mmol/L N 22-32 Anion Gap 10 mmol/L N 2-11 Glucose 132 mg/dL High 70-100 Blood Urea Nitrogen 27 mg/dL High 6-24 Creatinine 0.64 mg/dL N 0.51-0.95 BUN/Creatinine Ratio 42.2 High 8-20 Calcium 9.3 mg/dL N 8.6-10.3 Total Protein 6.3 g/dL Low 6.4-8.9 Albumin 3.7 g/dL N 3.2-5.2 Globulin 2.6 g/dL N 2-4 Albumin/Globulin Ratio 1.4 N 1-3 Total Bilirubin 0.50 mg/dL N 0.2-1.0 Alkaline Phosphatase 37 U/L N 34-104 Alt 35 U/L N 7-52 Ast 20 U/L N 13-39 Egfr Non- 91.0 >60 Egfr 110.1 >60 4 1 Because ethnic data is not always readily available, this report includes an eGFR for both -Americans and non- Americans. The National Kidney Disease Education Program (NKDEP) does not endorse the use of the MDRD equation for patients that are not between the ages of 18 and 70, are , have extremes of body size, muscle mass, or nutritional status, or are non- or non-. According to the National Kidney Foundation, irrespective of diagnosis, the stage of the disease is based on the level of kidney function: Stage Description GFR(mL/min/1.73 m(2)) 1 Kidney damage with normal or decreased GFR 90 2 Kidney damage with mild decrease in GFR 60-89 3 Moderate decrease in GFR 30-59 4 Severe decrease in GFR 15-29 5 Kidney failure <15 (or dialysis) 2 Because ethnic data is not always readily available, this report includes an eGFR for both -Americans and non- Americans. The National Kidney Disease Education Program (NKDEP) does not endorse the use of the MDRD equation for patients that are not between the ages of 18 and 70, are , have extremes of body size, muscle mass, or nutritional status, or are non- or non-. According to the National Kidney Foundation, irrespective of diagnosis, the stage of the disease is based on the level of kidney function: Stage Description GFR(mL/min/1.73 m(2)) 1 Kidney damage with normal or decreased GFR 90 2 Kidney damage with mild decrease in GFR 60-89 3 Moderate decrease in GFR 30-59 4 Severe decrease in GFR 15-29 5 Kidney failure <15 (or dialysis) 3 Because ethnic data is not always readily available, this report includes an eGFR for both -Americans and non- Americans. The National Kidney Disease Education Program (NKDEP) does not endorse the use of the MDRD equation for patients that are not between the ages of 18 and 70, are , have extremes of body size, muscle mass, or nutritional status, or are non- or non-. According to the National Kidney Foundation, irrespective of diagnosis, the stage of the disease is based on the level of kidney function: Stage Description GFR(mL/min/1.73 m(2)) 1 Kidney damage with normal or decreased GFR 90 2 Kidney damage with mild decrease in GFR 60-89 3 Moderate decrease in GFR 30-59 4 Severe decrease in GFR 15-29 5 Kidney failure <15 (or dialysis) 4 Because ethnic data is not always readily available, this report includes an eGFR for both -Americans and non- Americans. The National Kidney Disease Education Program (NKDEP) does not endorse the use of the MDRD equation for patients that are not between the ages of 18 and 70, are , have extremes of body size, muscle mass, or nutritional status, or are non- or non-. 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 gravis without Traffic Counter (acute) exacerbation Z79.52 longterm (current) use of systemic steroids R06.02 Shortness of breath Office 02/04/2018 Dominic Augustin G70.00 Myasthenia Visit 2:45p Neurologic Serv Kate Ricketts M.D. 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 Myasthenia gravis 4:21p Clinic Juan Cisneros with (acute) exacerbation Office Visit 07/14/2017 [facility] G70. Myasthenia gravis 9:21a Assoc, Hospitalists AGUSTIN Chaudhari with (acute) exacerbation I10 Essential (primary) hypertension K58.9 Irritable bowel syndrome without diarrhea M19.90 Unspecified osteoarthritis, unspecified site Office 07/13/2017 [facility]ist Charli G70. Myasthenia Visit 4:20p Clinic Juan Ricketts gravwilber with (acute) exacerbation Office 07/13/2017 [facility] G70.01 Myasthenia Visit 9:10a Assoc, HospitalAGUSTIN Brady gravis with (acute) exacerbation I10 Essential (primary) hypertension K58.9 Irritable bowel syndrome without diarrhea M19.90 Unspecified osteoarthritis, unspecified site Office Visit 07/12/2017 [facility] Silverio Patel G70. Myasthenia gravis 4:19p Clinic Juan Cisneros with (acute) exacerbation Office Visit 07/12/2017 [facility] G70. Myasthenia gravis 8:47a Assoc,pc Hospitalists AGUSTIN Chaudhari with (acute) exacerbation I10 Essential (primary) hypertension K58.9 Irritable bowel syndrome without diarrhea M19.90 Unspecified osteoarthritis, unspecified site Office 07/11/2017 [facility] Opal Lundberg G70. Myasthenia gravis Visit 4:18p Clinic Juan Klein with (acute) exacerbation R00.0 Tachycardia, unspecified Office Visit 07/11/2017 [facility] G70. Myasthenia gravis 8:46a Assoc,xena Chan NP with (acute) Hospitalists exacerbation I10 Essential (primary) hypertension K58.9 Irritable bowel syndrome without diarrhea M19.90 Unspecified osteoarthritis, unspecified site Office 07/10/2017 [facility] Opal Lundberg G70. Myasthenia gravis Visit 4:17p Clinic Juan Klein with (acute) exacerbation Office 07/10/2017 [facility] G70. Myasthenia gravis Visit 8:44a Assoc, Hospitalists ARNIE Chan with (acute) exacerbation I10 Essential (primary) hypertension K58.9 Irritable bowel syndrome without diarrhea M19.90 Unspecified osteoarthritis, unspecified site [facility] Myasthenia Visit 1:00p Neurologic Serv Of Juan Ricketts gravis without Traffic Counter (acute) exacerbation Plan of Treatment Future Appointment(s):12/02/2018 3:45 pm - Charli Ricketts M.D. at [facility] Neurologic Serv [facility]08/19/2018 - Charli Ricketts M.D.G70.00 Myasthenia gravis without (acute) exacerbationFollow up:Follow up in 3 monthsRecommendations:Prednisone: 10mg For 1 weeks, take 1 1/4 if possible. then reduce to 1 a day for 1 month. 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
[2018-09-08 08:34] VITALS: BP 127/76
--- NOTE | 2018-09-08 10:06 | UC ---
Lower Extremity/Ankle HPI - HPI Summary HPI Summary: left lower leg pain and swelling and redness x 1 week was seen by her pcp today , was see by her pcp today , pcp asked her to come to the urgent care to r/o dvt pt. denies any hx of dvt , no recent travel, non-smoker pain is 3 out of 10 , no radiation , nothing is making it better or worse denies any chest pain , no sob - History of Current Complaint Chief Complaint: UCLowerExtremity Stated Complaint: R/O DVT Time Seen by Provider: 09/08/18 08:35 Hx Obtained From: Patient Onset/Duration: Gradual Onset, Lasting Weeks - 1, Still Present Severity Initially: Moderate Severity Currently: Moderate Pain Intensity: 2 Pain Scale Used: 0-10 Numeric Aggravating Factor(s): Standing, Ambulation Alleviating Factor(s): Nothing Able to Bear Weight: Yes - Risk Factors DVT Risk Factors: Negative - Allergies/Home Medications Allergies/Adverse Reactions: Allergies Allergy/AdvReac Type Severity Reaction Status Date / Time oxycodone Allergy Hallucinati Verified 07/10/17 12:07 ons peanut Allergy See Comment Verified 07/10/17 12:07 codeine AdvReac Hallucinati Verified 07/10/17 12:07 ons Home Medications: Home Medications Calcium Carb, Citrate/Vit D3 [Calcium+D3 Gradual Releas] 1 tab PO DAILY [History Confirmed 09/08/18] Cholecalciferol (Vitamin D3) [D 400] 400 unit PO DAILY 09/08/18 [History Confirmed 09/08/18] Magnesium Oxide [Magnesium] 250 mg PO DAILY 09/08/18 [History Confirmed 09/08/18 ] azaTHIOprine TAB(*) [Imuran TAB(*)] 50 mg PO TID 09/08/18 [History Confirmed 04/28] predniSONE [Prednisone 5 MG TAB] 15 mg PO DAILY 09/08/18 [History Confirmed 04/28] PMH/Surg Hx/FS Hx/Imm Hx - Additional Past Medical History Additional PMH: Myasthenia gravis - Surgical History Surgical History: Yes Surgery Procedure, Year, and Place: Bilateral hip replacements. Gallbladder removal. cataracts - Family History Known Family History: Negative: Renal Disease - Social History Alcohol Use: None Substance Use Type: None Smoking Status (MU): Never Smoked Tobacco - Immunization History Most Recent Influenza Vaccination: 2017 Most Recent Pneumonia Vaccination: Never Review of Systems All Other Systems Reviewed And Are Negative: Yes Constitutional: Positive: Negative Skin: Positive: Negative Eyes: Positive: Negative ENT: Positive: Negative Respiratory: Positive: Negative Is Patient Immunocompromised?: No Physical Exam Triage Information Reviewed: Yes Appearance: Well-Appearing, No Pain Distress, Obese Vital Signs: Initial Vital Signs Temp 98.0 F 09/08/18 08:27 Pulse 83 09/08/18 08:27 Resp 16 09/08/18 08:27 BP 127/76 09/08/18 08:27 Pulse Ox 99 09/08/18 08:27 Vital Signs Reviewed: Yes Eye Exam: Normal Eyes: Positive: Conjunctiva Clear ENT: Positive: Normal ENT inspection, Hearing grossly normal, Pharynx normal, Pharyngeal erythema Neck: Positive: Supple, Nontender, No Lymphadenopathy Respiratory: Positive: Chest non-tender, Lungs clear, Normal breath sounds Cardiovascular: Positive: RRR, No Murmur, Pulses Normal Skin: Positive: Other - left lower leg : + erythema, swollen, tender Diagnostics - Radiology No standard instances Summary of Radiographic Findings: US left lower ext: negative for DVT Lower Extremity Course/Dx - Differential Dx/Diagnosis Provider Diagnosis: Cellulitis of left leg Discharge - Sign-Out/Discharge Documenting (check all that apply): Patient Departure All imaging exams completed and their final reports reviewed: Yes - Discharge Plan Condition: Stable Disposition: HOME Prescriptions: Cephalexin CAP* [Keflex CAP*] 500 mg PO TID #30 cap Patient Education Materials: Cellulitis (ED) Referrals: Taisha Lucero MD [Primary Care Provider] - 5 Days - Billing Disposition and Condition Condition: STABLE Disposition: Home
== END 2018-09-08 09:57 | disposition home or self-care (01) ==
LOC: UCCORT 08:11
DX: L03.116 Cellulitis of left lower limb (principal); G70.00 Myasthenia gravis without (acute) exacerbation
CPT/HCPCS: 99212; G0463